=== PATIENT | male | born 1945 | race Caucasian/White ===

== ENCOUNTER 2019-11-09 15:11 | Outpatient (CLI) | payer MEDICARE, BC, SELFPAY ==
--- NOTE | 2019-11-09 | US_ITS ---
WS: [id number] RENAL ULTRASOUND URINARY BLADDER ULTRASOUND HISTORY: RENAL INSUFFICIENCY COMPARISON: None available. TECHNIQUE: 2-D and color Doppler imaging of the kidney submitted. Right kidney: 10.1 cm x 6.2 cm x 4.7 cm. Normal size kidney are normal echogenicity. There cortical cysts. The largest from the upper pole amy sures 2.6 x 2.4 cm. There are additional smaller cysts scattered throughout the kidney. No hydronephr osis or solid mass. Left kidney: 10.5 cm x 4.6 cm x 4.9 cm. Normal size kidney. No cortical thinning or hydronephrosis. No solid mass. Aorta: Normal. Urinary Bladder: Well-distended urinary bladder. No filling defects. No free fluid in the pelvis. US/US renal BI with bladder IMPRESSION: 1. No cortical atrophy or hydronephrosis. 2. Numerous RIGHT renal cysts with the largest measuring 2.6 x 2.4 cm.
== END 2019-11-09 15:12 | disposition home or self-care (01) ==
LOC: RAD 15:20
PROVIDERS: Visit Provider Family Medicine
DX: N28.9 Disorder of kidney and ureter, unspecified (principal); I10 Essential (primary) hypertension; Q61.02 Congenital multiple renal cysts
CPT/HCPCS: 76770; 76857

== ENCOUNTER 2021-08-30 19:43 | Emergency (ER) | payer MEDICARE, BC, SELFPAY ==
[2021-08-30 19:49] VITALS: BP 190/85; PULSE 89; RESP 18; TEMP 36.9; O2SAT 95; BMI 25.8
--- NOTE | 2021-08-30 20:01 | CTR_ITS ---
PROCEDURE INFORMATION: Exam: CT Cervical Spine Without Contrast Exam date and time: 08/30/2021 9:13 PM Age: 76 years old Clinical indication: Injury or trauma; Blunt trauma; Patient HX: C/O neck pain after fall; Additional info: Fall, arm numbness bilateral TECHNIQUE: Imaging protocol: Computed tomography images of the cervical spine without contrast. Radiation optimization: All CT scans at this facility use at least one of these dose optimization techniques: automated exposure control; mA and/or kV adjustment per patient size (includes targeted exams where dose is matched to clinical indication); or iterative reconstruction. COMPARISON: CT facial bones wo con* [id number] 08/30/2021 9:11 PM RADIATION DOSE METRICS: Total DLP (mGy-cm): 625.98 FINDINGS: Bones/joints: No cervical spine fracture is identified. There is decreased height of the C3-C4 disc with slight retrolisthesis and prominent anterior and posterior osteophytes. There are degenerative changes in facet joints bilaterally at multiple levels. Discs/Spinal canal/Neural foramina: Uncovertebral hypertrophy causes bilateral foraminal narrowing at C3-C4 and C5-C6, C6-C7 and C7-T1. There is decreased height of the C5-C6 C6-C7 and C7-T1 discs with small anterior and posterior osteophytes. Posterior spurring and disc osteophyte complex causes moderate to severe central canal stenosis at C3-C4 and C5-C6. Lungs: There is a calcified granuloma in the right pulmonary apex. Soft tissues: Unremarkable. CT/CT cervical spin wo con* [id number] IMPRESSION: Degenerative changes. No fracture is identified.
--- NOTE | 2021-08-30 20:01 | CTR_ITS ---
PROCEDURE INFORMATION: Exam: CT Head Without Contrast Exam date and time: 08/30/2021 9:08 PM Age: 76 years old Clinical indication: Injury or trauma; Blunt trauma (contusions or hematomas); Without loss of consciousness; Patient HX: Fall while walking denies loc TECHNIQUE: Imaging protocol: Computed tomography of the head without contrast. Radiation optimization: All CT scans at this facility use at least one of these dose optimization techniques: automated exposure control; mA and/or kV adjustment per patient size (includes targeted exams where dose is matched to clinical indication); or iterative reconstruction. COMPARISON: No relevant prior studies available. RADIATION DOSE METRICS: Total DLP (mGy-cm): 912.09 FINDINGS: Brain: There is mild cortical atrophy. Low-density changes in the white matter are consistent with nonspecific small vessel chronic ischemic change. There is no intracranial mass, hemorrhage or edema. Cerebral ventricles: No ventriculomegaly. Paranasal sinuses: Visualized sinuses are unremarkable. No fluid levels. Mastoid air cells: Visualized mastoid air cells are well aerated. Bones/joints: Unremarkable. No acute fracture. Soft tissues: Unremarkable. CT/CT head wo con* [id number] IMPRESSION: No acute intracranial finding
--- NOTE | 2021-08-30 20:01 | CTR_ITS ---
PROCEDURE INFORMATION: Exam: CT Maxillofacial Without Contrast Exam date and time: 08/30/2021 9:11 PM Age: 76 years old Clinical indication: Injury or trauma; Blunt trauma (contusions or hematomas); Cheek bone and orbit/periorbital; Left; Patient HX: L cheek bruising and swelling after fall TECHNIQUE: Imaging protocol: Computed tomography images of the face without contrast. Radiation optimization: All CT scans at this facility use at least one of these dose optimization techniques: automated exposure control; mA and/or kV adjustment per patient size (includes targeted exams where dose is matched to clinical indication); or iterative reconstruction. COMPARISON: CT head wo con* [id number] 08/30/2021 9:08 PM RADIATION DOSE METRICS: Total DLP (mGy-cm): 734.23 FINDINGS: Orbital cavities: Orbits are normal. Globes are unremarkable. Bones/joints: There is nasal septal deviation to the right. No facial fracture is identified. Paranasal sinuses: Paranasal sinuses are normally aerated and clear. Soft tissues: There is some swelling or contusion along the left side of the face and inferior to the left orbit. CT/CT facial bones wo con* [id number] IMPRESSION: Mild facial contusion. No fracture is identified.
--- NOTE | 2021-08-30 20:01 | W.ED.FALL ---
Documented by User: MERARI Wallis 08/30/21 22:06 HPI - Fall General: Chief Complaint: Fall Stated Complaint: Lt Check & Nose Injury\Elbow\Feels Like Needle Arm Time Seen by Provider: 08/30/21 20:00 History of Present Illness: Patient fell about 130 this afternoon. Patient reports tripping over a bar and landing on the his right elbow and striking the left side of his face against the ground. Patient denies any loss of consciousness. Patient reports that he feels okay except he started having some numbness and tingling in his distal hands. Patient is alert oriented responds appropriate to questions. Patient denies any use of blood thinners. Patient appears well. Patient appears in mild pain. MD complaint: fall Onset (ago): hour(s) Fall from: standing Fall witnessed: no Place fall occurred: home Loss of consciousness: None Prolonged down time: no Symptoms prior to fall: none Context: tripped/slipped Location of injury: head Location of injury - extremities: Right: forearm Associated symptoms-after fall: Denies chest pain Review of Systems General: Reports: 10 or more systems reviewed and unremarkable except in HPI and below Const: Denies: fever(s) Eyes: Denies: change in vision ENMT: Denies: throat pain Card: Denies: chest pain Resp: Denies: dyspnea GI: Denies: nausea Musc: Denies: back pain Skin/Breast: Reports: new lesions Neuro: Reports: numbness in extremities Physical Exam Const: COMMON NORMALS: alert HENMT: COMMON NORMALS: Normal external nose present HEAD & SCALP: abrasion (Left facial cheek) FACE & SINUS: abrasion (Left cheek) on the left maxilla NOSE: Normal external nose present MOUTH: Normal oral and palatal mucosa present THROAT: posterior oropharynx normal Eye: COMMON NORMALS: Equal, round and reactive pupils present and EOMs intact bilaterally PUPIL: Yes Equal, round and reactive pupils present Neck/C-Spine: CERVICAL SPINE: Yes cervical ROM normal, No step off deformity and Yes Paracervical muscle tenderness Resp: COMMON NORMALS: normal respiratory effort and clear to auscultation bilaterally AUSCULTATION: clear to auscultation bilaterally Cardio: COMMON NORMALS: regular rate and regular rhythm RATE: regular rate RHYTHM: regular rhythm Extremity: RIGHT UPPER EXTREMITY: Yes elbow joint (Abrasion about right elbow) Right elbow: Yes inspection, Yes palpation, Yes ROM and Yes neurovascular exam OTHER: Good muscle strength bilaterally to upper extremities. Neuro: SENSORIUM/ORIENTATION: Yes alert Psych: COMMON NORMALS: cooperative Skin: COMMON NORMALS: no rashes or lesions noted GENERAL SKIN EXAM: no rashes or lesions noted Course Vital Signs: Vital signs: Vital Signs Temperature 98.4 F 08/30/21 20:06 Pulse Rate 89 08/30/21 20:06 Respiratory Rate 16 08/30/21 20:06 Blood Pressure 190/85 08/30/21 20:06 Pulse Oximetry 97 08/30/21 20:06 MDM - Fall Medical Decision Making 76-year-old male patient comes in today with a fall about 1:00 this afternoon. Since then patient has had increasing numbness and tingling to his bilateral hands. On exam patient has abrasions to his right elbow, an abrasion and contusion to the left facial cheek. Patient has some tenderness to the paracervical muscles. Respirations are even lungs are clear to auscultation. No other injury can be seen. Differential diagnosis includes intracranial bleed, cervical fracture, degenerative disc disease. CT of the head and facial bones indicated no fracture or intracranial bleeding. CT of the cervical spine indicated severe degenerative disc disease with some foraminal stenosis. Reviewed exam with patient with recommendations for follow-up with orthopedic spine for further evaluation and treatment. Case management was requested for follow-up appointment. Lab Data Radiology Impressions Cervical Spine CT 08/30/21 20:01 IMPRESSION: Degenerative changes. No fracture is identified. Face CT 08/30/21 20:01 IMPRESSION: Mild facial contusion. No fracture is identified. Head CT 08/30/21 20:01 IMPRESSION: No acute intracranial finding Discharge Plan Discharge Patient Disposition: Home Clinical Impression: Degenerative cervical disc Fall Qualifiers: Encounter type: initial encounter Qualified Code(s): W19.XXXA - Unspecified fall, initial encounter Contusion of face Qualifiers: Encounter type: initial encounter Qualified Code(s): S00.83XA - Contusion of other part of head, initial encounter Condition: Stable Discharge Orders: Discharge ED (Routine); Ordered 08/30/21 Ordered By: Anam Cisse Discharge Diet: Usual diet Discharge Activity: Increase activity as tolerated Patient Instructions: Degenerative Disc Disease (ED) Activity Restrictions/Additional Instructions: Activity as tolerated. Use acetaminophen or ibuprofen for pain. Follow-up with primary care as needed. Return to ER for worsening symptoms or new concerns. Coding Level of Care Code ED Linoleum Mechanic for Chg Fwd Exam Comprehensive Documented by User: Suman Castañeda DO 08/31/21 01:00 HPI - Fall General: Chief Complaint: Fall Stated Complaint: Lt Check & Nose Injury\Elbow\Feels Like Needle Arm Time Seen by Provider: 08/30/21 20:00 Course Vital Signs: Vital signs: Vital Signs Temperature 98.4 F 08/30/21 20:06 Pulse Rate 89 08/30/21 20:06 Respiratory Rate 16 08/30/21 20:06 Blood Pressure 190/85 08/30/21 20:06 Pulse Oximetry 97 08/30/21 20:06 MDM - Fall Medical Decision Making 76-year-old male patient comes in today with a fall about 1:00 this afternoon. Since then patient has had increasing numbness and tingling to his bilateral hands. On exam patient has abrasions to his right elbow, an abrasion and contusion to the left facial cheek. Patient has some tenderness to the paracervical muscles. Respirations are even lungs are clear to auscultation. No other injury can be seen. Differential diagnosis includes intracranial bleed, cervical fracture, degenerative disc disease. CT of the head and facial bones indicated no fracture or intracranial bleeding. CT of the cervical spine indicated severe degenerative disc disease with some foraminal stenosis. Reviewed exam with patient with recommendations for follow-up with orthopedic spine for further evaluation and treatment. Case management was requested for follow-up appointment. This patient was originally seen by MERARI Quinonez.? I agree with his history, evaluation, and treatment. Lab Data Radiology Impressions Cervical Spine CT 08/30/21 20:01 IMPRESSION: Degenerative changes. No fracture is identified. Face CT 08/30/21 20:01 IMPRESSION: Mild facial contusion. No fracture is identified. Head CT 08/30/21 20:01 IMPRESSION: No acute intracranial finding Discharge Plan Discharge Patient Disposition: Home Clinical Impression: Degenerative cervical disc Fall Qualifiers: Encounter type: initial encounter Qualified Code(s): W19.XXXA - Unspecified fall, initial encounter Contusion of face Qualifiers: Encounter type: initial encounter Qualified Code(s): S00.83XA - Contusion of other part of head, initial encounter Condition: Stable Discharge Orders: Discharge ED (Routine); Ordered 08/30/21 Ordered By: Anam Cisse Discharge Diet: Usual diet Discharge Activity: Increase activity as tolerated Patient Instructions: Degenerative Disc Disease (ED) Activity Restrictions/Additional Instructions: Activity as tolerated. Use acetaminophen or ibuprofen for pain. Follow-up with primary care as needed. Return to ER for worsening symptoms or new concerns. Coding Level of Care Code ED Linoleum Mechanic for Pricilla Colbert Exam Comprehensive
[2021-08-30 20:06] VITALS: BP 190/85; PULSE 89; RESP 16; TEMP 36.9; O2SAT 97
--- NOTE | 2021-09-01 14:48 | DCPLANNER ---
Addendum entered by Aminta Espinoza 09/23/21 20:57: Patient had a follow up appointment scheduled for 09.11.21 with ortho - patient did not attend appointment. Addendum entered by Aminta Espinoza 09/02/21 08:37: Patient has a follow up appointment scheduled for August at 10:[address] Jaarmillo at ortho. Clinic will call patient with appointment information. Original Note: nursing program manager had message to schedule a follow up appointment for patient with ortho. nursing program manager sent patients information to the front staff at ortho, thru the [employer] messaging system. Patients information will be printed and reviewed. Clinic will call patient with appointment information.
== END 2021-08-30 22:06 | disposition home or self-care (01) ==
PROVIDERS: Emergency Provider Nurse Practitioner Family
DX: R20.0 Anesthesia of skin (principal); S50.311A Abrasion of right elbow, initial encounter; S00.83XA Contusion of other part of head, initial encounter; W18.09XA Striking against other object with subsequent fall, initial encounter; Y92.009 Unspecified place in unspecified non-institutional (private) residence as the place of occurrence of the external cause; M50.30 Other cervical disc degeneration, unspecified cervical region
CPT/HCPCS: 70450; 70486; 72125; 99282

== ENCOUNTER → 2021-09-04 08:37 | Outpatient (BNVA) | payer MEDICARE, BC, SELFPAY | PROVIDERS: PCP Family Medicine; Visit Provider Urology | DX: R31.0 Gross hematuria (principal) | CPT/HCPCS: 81003 ==

== ENCOUNTER 2021-09-08 11:42 | Observation (INO) | payer MEDICARE, BC, SELFPAY ==
[2021-09-05 14:17] VITALS: BMI 26.6
[2021-09-08] VITALS (21 sets, daily range): BP systolic 102–170; BP diastolic 53–88; PULSE 68–93; RESP 10–18; TEMP 36.3–36.9; O2SAT 90–100
--- NOTE | 2021-09-08 09:07 | XRR_ITS ---
PROCEDURE INFORMATION: Exam: XR Chest Exam date and time: 09/08/2021 9:20 AM Age: 76 years old Clinical indication: Pre-operative exam; Cardiovascular screening and respiratory screening exam; Patient HX: Pre op no complaints; Additional info: Newly diagnosed bladder cancer TECHNIQUE: Imaging protocol: XR of the chest. Views: 2 views. COMPARISON: CT cervical spin wo con* [id number] 08/30/2021 9:13 PM FINDINGS: Lungs: Hyperinflation. No focal infiltrates. Suspect a partially calcified 6 mm left mid lung granuloma. Pleural spaces: Unremarkable. No pleural effusion. No pneumothorax. Heart/Mediastinum: Unremarkable. No cardiomegaly. Bones/joints: Arthritis and mild curvature in the spine. XR/XR chest 2V* [id number] IMPRESSION: Partially calcified nodule possibly a left granuloma.
--- NOTE | 2021-09-08 09:07 | ECG_ITS ---
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 Measurements Intervals [place] Rate: 69 P: 89 WV: 181 QRS: 29 QRSD: 101 T: 56 QT: 377 QTc: 404 Interpretive Statements SINUS RHYTHM No previous ECG available for comparison Electronically Signed On 09-08-2021 23:07:09 CDT by Panfilo Corrales M.D. [id number]
--- NOTE | 2021-09-08 09:12 | P.HPUD_ITS ---
Surgery/Procedure H&P Update DATE OF PROCEDURE: September 08, 2021 DATE H&P PERFORMED: 09/04/21 H&P UPDATE INFORMATION: I have reviewed H&P completed within last 30 days, I have examined patient prior to procedure, No changes to prior documentation and H&P is in [facility] [place] date indicated PREOP DIAGNOSIS: Newly diagnosed bladder cancer PLANNED PROCEDURE: Operation Date: 09/08/21 10:20 Proposed Procedures p Cystoscopy [id number]/[id number](Not Applicable) - Jez Moseley MD s Transurethral Resection Bladder Tumor(Not Applicable) - Jez Moseley MD
[2021-09-08] MEDS: sodium chloride 0.9% 1,000 ML 30 ML IV (09:46)
--- NOTE | 2021-09-08 10:17 | P.OP_ITS ---
Operative Report Date of procedure: September 08, 2021 Pre-op diagnosis: Newly diagnosed bladder cancer Post-op diagnosis: Newly diagnosed bladder cancer Procedure done: Cystoscopy, transurethral section of bladder tumor large Specimens removed/disposition: Bladder tumor Pathology: Bladder tumor chips Surgeon: Pradip Anesthesia: General Urine output: Not measured Complications: None Brief History: Mr. Blandon is a delightful 76-year-old white male who I first evaluated on 09/04/2021 at the request of Dr. Johnson for episodic gross hematuria. He had a CT scan done at [facility] that showed enhancing filling defects within the bladder. 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 One of them was near or over the right ureteral orifice. He is admitted now for TURBT. Procedure: After routine preoperative evaluation examination and obtaining of informed consent he was taken to the operating suite on 09/08/2021 where general anesthesia was administered without difficulty after appropriate timeout was performed, SCDs confirmed to be functioning, preoperative antibiotics admini stered, beta-ray protocol confirmed. Prepped and draped in the usual sterile fashion in dorsolithotomy position paying careful attention to avoiding pressure points. 21 [place] cystoscope with 30 degree lens was introduced into the urethra meatus and advanced into the bladd without difficulty. 30 and 70 degree lenses were used to examine the bladder with confirmation of the findings in the cl inic. Findings: The urethra was then calibrated with [place] sounds and easily accommodated 30 [place]ian. The gyrus bipolar system was utilized for resection. The 25 [place] continuous- flow resectoscope sheath with visual obturator in place was advanced into the bladder without difficulty. The working element with super loop was utilized to resect the tumor down to the base. Deep sections were then taken of the base of each area. Muscle was seen at the base All chips were evacuated from the bladder. Fulguration was utilized as needed to obtain complete hemostasis. Bladder was then drained with a 20 [place] three-way Gusman catheter and light normal saline CBI was initiated He tolerated the procedure well without complications and was awakened in the operating room and returned to the recovery room in stable condition Plans: 1. Mitomycin instillation either this afternoon or tomorrow morning 2. Anticipate leaving the catheter at discharge to allow further healing
--- NOTE | 2021-09-08 10:24 | ANES.PREANE2 ---
Pre-Anesthetic Assessment Height/Weight: Height 1.73 m Weight 79.379 kg Temp Pulse Resp BP Pulse Ox 97.6 F 74 18 167/79 95 09/08/21 09:30 09/08/21 09:30 09/08/21 09:30 09/08/21 09:30 09/08/21 09:30 Preop Diagnosis: Newly diagnosed bladder cancer Operation Date: 09/08/21 10:20 Proposed Procedures p Cystoscopy [id number]/[id number](Not Applicable) - Jez Moseley MD s Transurethral Resection Bladder Tumor(Not Applicable) - Jez Moseley MD Familial anesthetic complications: None Was Beta Cy taken within 24 hours: Yes Was Clonidine taken within 24 hours: N/A Last intake: Intake Last Liquid Date 09/07/21 Last Liquid Time 23:00 Last Solid Date 09/07/21 Last Solid Time 20:00 Social Tobacco and No alcohol Exam alert, oriented x 3 and regular rate & rhythm Airway Submandibular: within normal limits Cervical ROM: within normal limits Mallampati: Class II Dentition: caps Pulmonary Chronic Obstructive Pulmonary Disease CV/HEM Hypertension Metabolic Hyperlipidemia Anesthetic Plan ASA status: 3 Anesthesia: General Medications/Allergies Home Medications Medication Instructions Recorded Confirmed Last Taken Type cholecalciferol (vitamin D3) 25 25 mcg PO DAILY 09/04/21 09/05/21 09/07/21 History mcg (1,000 unit) capsule irbesartan 300 1 tab PO DAILY 09/04/21 09/05/21 09/07/21 History mg-hydrochlorothiazide 12.5 mg tablet (Avalide) magnesium 250 mg tablet 250 mg PO DAILY 09/04/21 09/05/21 09/07/21 History metoprolol tartrate 25 mg tablet 25 mg PO BID 09/04/21 09/05/21 09/08/21 07:00 History cnpoccxw-zlixjczc-tzayq acid 400 tab PO DAILY tab 09/04/21 09/04/21 09/07/21 History mcg-vit K 20 mcg-lycop 300 mcg tablet (One-A-Day Men's Multivitamin) pravastatin 20 mg tablet 20 mg PO DAILY 09/04/21 09/05/21 09/07/21 History Allergies Allergy/AdvReac Type Severity Reaction Status Date / Time lidocaine Allergy low heart Verified 09/08/21 09:43 rate Current Medications Generic Name Dose Route Start Last Admin Trade Name Frecarter PRN Reason Stop Dose Admin Sodium Chloride 1,000 mls @ 30 mls/hr 09/08/21 09:15 09/08/21 09:46 Sodium Chloride 0.9% IV 09/09/21 09:14 30 mls/hr .Q24H HIGINIO Administration PFSH Anesthesia Medical History (Updated 09/07/21 @ 00:00 by ) Gross hematuria Lesion of bladder Family History (Updated 09/04/21 @ 08:49 by Laureen Chadwick LPN) Father , AT AGE 67 Accidentally struck by tree Mother , AT AGE 84 Sepsis Social History (Updated 09/04/21 @ 08:49 by Laureen Chadwick LPN) Smoking and tobacco status: current every day smoker Alcohol intake: never Marital status: Current occupational status: retired History of recent travel: No Data Anesthesia Cardiac Studies: No Data to Display
[2021-09-08] MEDS: levofloxacin-dextrose 5 % 500 MG/100 ML PREMIX 100 MG IV (10:26)
[2021-09-08 10:34] LABS: Basophils % 0.4 %; Eosinophils # 0.2 10^3/uL (0.0-0.8); Eosinophils % 2.2 %; Hematocrit 39.8 % (42.0-52.0); Hemoglobin 13.3 g/dL (11.7-16.6); Lymphocytes # 2.9 10^3/uL (0.8-4.8); Lymphocytes % 27.3 %; Mean Corpuscular HGB Conc 33.4 g/dL (30.0-36.0); Mean Corpuscular Volume 89.8 fl (80-94); Mean Platelet Volume 10.4 fL (7.4-10.4); Monocytes # 0.8 10^3/uL (0.2-0.9); Monocytes % 7.9 %; Neutrophils # 6.47 10^3/uL (1.8-7.7); Neutrophils % 61.9 %; Nucleated Red Blood Cells % 0 %; Platelet Count 373 10^3/cmm (130-400); Red Blood Count 4.43 10^6/uL (4.1-5.3); Red Cell Distribution Width 12.2 % (12.1-15.1); White Blood Count 10.5 10^3/uL (4.0-10.0)
[2021-09-08] MEDS: lidocaine 2% Urojet 20 mL TOPICAL (10:48)
[2021-09-08 11:04] LABS: Alanine Aminotransferase 15 U/L (0-41); Albumin Level 4.1 g/dL (3.5-5.2); Alkaline Phosphatase 106 IU/L (40-130); Anion Gap 15.5 (5-19); Aspartate Amino Transferase 14 U/L (0-40); Blood Urea Nitrogen 30 mg/dL (8-23); Calcium 9.6 mg/dL (8.5-10.5); Carbon Dioxide 23 mmol/L (22-29); Chloride 100 mmol/L (98-107); Globulin 3.8 g/dL (1.3-4.6); Glucose 150 mg/dL (65-115); Osmolality Calculated 287 mOsm/kg (285-295); Potassium 4.5 mmol/L (3.5-5.1); Sodium 134 mmol/L (136-145); Total Bilirubin 0.3 mg/dL (0.15-1.2); Total Protein 7.9 g/dL (6.6-8.7)
[2021-09-08] MEDS: D5-NS 0.45% + KCL 20 mEq 20 MEQ/1,000 ML BAG 50 MEQ IV (12:46)
[2021-09-08] MEDS: hydroCHLOROthiazide 25 mg Tablet 12.5 MG PO (13:07)
[2021-09-08] MEDS: losartan 50 mg Tablet 100 MG PO (13:07)
--- NOTE | 2021-09-08 14:10 | ANE.PACU2 ---
Inpatient post-anesthesia follow up: Airway intact: Yes Vital signs: Temperature 97.8 F Pulse Rate 72 Respiratory Rate 18 Blood Pressure 170/82 Pulse Oximetry 94 Oxygen Delivery Me thod Room Air Oxygen Flow Rate 6 Fraction of Inspir ed Oxygen Hydration adequate: Yes Nausea and vomiting: No Pain level: 2 Mental status: Baseline
[2021-09-08] MEDS: docusate sodium 100 mg Capsule PO (17:44)
--- NOTE | 2021-09-08 17:44 | P.MISC_ITS ---
Miscellaneous Note Purpose of Documentation: Mitomycin documentation Note: 40 mg of mitomycin and 40 cc normal saline instilled into the bladder atraumatically. Slow infusion. Outflow plugged. Reviewed with nursing staff to remove the plugs at 1 hour or sooner for i ncreasing discomfort associated with overfilling. Placed back to dependent drainage.
--- NOTE | 2021-09-08 18:38 | PC.NURSE ---
Patient AAOx4, VSS, repositioned self frequently. Gusman in place and patent with medication drained per physicians specified time. No complications with drainage or holding in til drainage time. No new events, at bedside, no c/o pain, room clean and clutter free with call light in reach.
[2021-09-08] MEDS: metoprolol tartrate 25 mg Tablet PO (20:01)
[2021-09-09] MEDS: zolpidem 5 mg Tablet PO (01:33)
[2021-09-09 04:00] VITALS: BP 113/64; PULSE 69; RESP 16; TEMP 36.6; O2SAT 91
--- NOTE | 2021-09-09 05:40 | PC.NURSE ---
PATIENT RESTED IN BED THROUGHOUT THE NIGHT. ALERT AND ORIENTED X4, VSS. PATIENT AMBULATED IN ROOM LAST NIGHT WITH NO DIFFICULTIES AND NO COMPLAINTS OF DIZZINESS OR LIGHT HEADINESS. PATIENT HAD NO COMPLAINTS OF PAIN OR DISCOMFORT VOICED THIS SHIFT. FISHER IN PLACE, DRAINING WITH NO DIFFICULTIES. IV PATENT AND INTACT. PATINET RESTING IN BED AT THIS TIME, ENCOURAGED TO SIT IN CHAIR WHILE PATIENT IS AWAKE. CALL LIGHT IVETT BARFIELD, NO DISTRESS NOTED AT THIS TIME.
--- NOTE | 2021-09-09 07:18 | PM.DCS ---
Discharge Providers Date of Admission: 09/08/21 11:42 Date of Discharge: September 09, 2021 Attending Provider at Admission: Jez Moseley MD Attending Provider at Discharge: Jez Moseley MD Primary Care Provider: Magnus Johnson DO Diagnoses at Discharge Discharge Diagnosis (1) Bladder cancer: Details from hospital stay: TURBT performed without difficulty. 2 large tumors noted. Deep resection performed. Discharged with Gusman catheter in place Status: Acute (2) Hypertension: Status: Acute Other Information Additional DC diagnoses/information: Discharge with Gusman catheter in place. Trained in catheter care and bag management. Reason for Visit Reason for Visit: lesion of bladder Brief History: Mr. Blandon is a delightful 76-year-old white male recently evaluated for gross hematuria and found to have 2 areas suspicious for TCC of the bladder on outpatient cystoscopy. CT scan revealed nothing else outside of the bladder but did confirm these lesions. Admitted for TURBT. No contraindications to surgery. Hospital Course Hospital Course He was admitted on 09/09/2019 to the day of surgery which went well. Had 2 distinct areas of tumor one on the left lateral wall and the other on the right posterior lateral wall just cephalad to the right ureteral orifice/trigone. Both orifices were clear of tumor. 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 Postoperatively he did well. He received MITOMYCIN 40 mg bladder instillation, holding it for 1 hour, on the afternoon of the surgery. His urine remained clear and catheter functioned well throughout his hospital stay. Due to the depth of resection it was decided to send him home with a Gusman catheter in place for voiding trial later in the week. Discharged on postoperative day #1 in stable condition. Physical Exam Narrative: Alert oriented no acute distress Neck with good range of motion Neurologic no focal defects Respiratory no labored respiration or audible wheezing Urine is clear. Good range of motion of the extremities. Baseline physical exam. Urinary Catheter Management: 3-way Urethral CBI: Cath Placed During This Visit: yes Reason for Continuing Indwelling Catheter: Other Urinary Catheter Date of Insertion: 09/08/21 Urinary Catheter Time of Insertion: 11:15 Discharge Data Studies Completed and Pending Completed Studies During Hospitalization Category Date Time Status XR chest 2V* [id number] Routine Exams 09/08/21 09:07 Completed Radiology Impressions Chest X-Ray 09/08/21 09:07 IMPRESSION: Partially calcified nodule possibly a left granuloma. Laboratory Results WBC 10.5 10^3/uL (4.0-10.0) H 09/08/21 09:47 RBC 4.43 10^6/uL (4.1-5.3) 09/08/21 09:47 Hgb 13.3 g/dL (11.7-16.6) 09/08/21 09:47 Hct 39.8 % (42.0-52.0) L 09/08/21 09:47 MCV 89.8 fl (80-94) 09/08/21 09:47 MCH 30.0 pg (28.0-34.0) 09/08/21 09:47 MCHC 33.4 g/dL (30.0-36.0) 09/08/21 09:47 RDW 12.2 % (12.1-15.1) 09/08/21 09:47 Plt Count 373 10^3/cmm (130-400) 09/08/21 09:47 MPV 10.4 fL (7.4-10.4) 09/08/21 09:47 Neut % (Auto) 61.9 % 09/08/21 09:47 Lymph % (Auto) 27.3 % 09/08/21 09:47 [place] % (Auto) 7.9 % 09/08/21 09:47 Eos % (Auto) 2.2 % 09/08/21 09:47 Baso % (Auto) 0.4 % 09/08/21 09:47 Neut # (Auto) 6.47 10^3/uL (1.8-7.7) 09/08/21 09:47 Lymph # (Auto) 2.9 10^3/uL (0.8-4.8) 09/08/21 09:47 [place] # (Auto) 0.8 10^3/uL (0.2-0.9) 09/08/21 09:47 Eos # (Auto) 0.2 10^3/uL (0.0-0.8) 09/08/21 09:47 Baso # (Auto) 0.0 10^3/uL (0.0-0.1) 09/08/21 09:47 Nucleated RBC % (auto) 0 % 09/08/21 09:47 Nucleated RBCs # 0.0 /100WBC 09/08/21 09:47 Sodium 134 mmol/L (136-145) L 09/08/21 09:47 Potassium 4.5 mmol/L (3.5-5.1) 09/08/21 09:47 Chloride 100 mmol/L (98-107) 09/08/21 09:47 Carbon Dioxide 23 mmol/L (22-29) 09/08/21 09:47 Anion Gap 15.5 (5-19) 09/08/21 09:47 BUN 30 mg/dL (8-23) H 09/08/21 09:47 Creatinine 1.2 mg/dL (0.7-1.2) 09/08/21 09:47 GFR Calculation Not Reportable 09/08/21 09:47 Glucose 150 mg/dL (65-115) H 09/08/21 09:47 Calculated Osmolality 287 mOsm/kg (285-295) 09/08/21 09:47 Calcium 9.6 mg/dL (8.5-10.5) 09/08/21 09:47 Total Bilirubin 0.3 mg/dL (0.15-1.2) 09/08/21 09:47 AST 14 U/L (0-40) 09/08/21 09:47 ALT 15 U/L (0-41) 09/08/21 09:47 Alkaline Phosphatase 106 IU/L (40-130) 09/08/21 09:47 Total Protein 7.9 g/dL (6.6-8.7) 09/08/21 09:47 Albumin 4.1 g/dL (3.5-5.2) 09/08/21 09:47 Globulin 3.8 g/dL (1.3-4.6) 09/08/21 09:47 Procedures Performed Cystoscopy, transurethral section of bladder tumor large Vitals Last Vital Signs Temp 97.9 F 09/09/21 04:00 Pulse 69 09/09/21 04:00 Resp 16 09/09/21 04:00 BP 113/64 09/09/21 04:00 Pulse Ox 91 09/09/21 04:00 Discharge Plan Discharge Patient Disposition: Home Condition: Stable Prescriptions: Continued irbesartan-hydrochlorothiazide [Avalide] 300-12.5 mg tablet 1 tab PO DAILY 0RF magnesium 250 mg tablet 250 mg PO DAILY 0RF pravastatin 20 mg tablet 20 mg PO DAILY 0RF cholecalciferol (vitamin D3) 25 mcg (1,000 unit) capsule 25 mcg PO DAILY 0RF metoprolol tartrate 25 mg tablet 25 mg PO BID 0RF One-A-Day Men's Multivitamin 400-20-300 mcg tablet PO DAILY 0RF Discharge Orders: Discharge Order (Routine); Ordered 09/09/21 Ordered By: Jez Moseley Referrals: Jez Moseley MD [Physician] - 09/12/21 (Voiding trial, [facility] instruction) Discharge Diet: Usual diet Discharge Activity: Increase activity as tolerated Patient Instructions: Opioid Safety Activity Restrictions/Additional Instructions: 1. You can choose between the leg bag and the night bag based on your preference. 2. Please call if you have persistent bleeding in your urine. It is not uncommon to see some blood in the urine. If this is the case please drink more fluids to keep your urine dilute. If the catheter is not draining it will be important to let us know as soon as possible. 3. We will plan on a voiding trial in my office on Wednesday. Hopefully the pathology report will be back that time. We will also train you on how to pass a catheter if you have trouble voiding in the immediate postoperative period 4. The office number is [phone]. The hospital can reach me after hours if you have any questions. Discharge Attestations Time Spent in Discharge Care*: less than 30 min Quality Metrics Clinical Quality Measures [ No reported AMI, CVA or VTE this stay] Coding Level of Care Code Acute Chg FW DC note Diagnoses Bladder cancer C67.9 Hypertension I10
[2021-09-09 07:44] VITALS: BP 123/71; PULSE 68; RESP 16; TEMP 36.7; O2SAT 91
[2021-09-09 08:34] VITALS: BP 123/71
[2021-09-09] MEDS: cholecalciferol (vitamin D3) 1,000 unit Tablet 1000 UNIT PO (08:34)
[2021-09-09] MEDS: losartan 50 mg Tablet 100 MG PO (08:34)
[2021-09-09] MEDS: docusate sodium 100 mg Capsule PO (08:34)
[2021-09-09] MEDS: hydroCHLOROthiazide 25 mg Tablet 12.5 MG PO (08:34)
[2021-09-09] MEDS: atorvastatin 40 mg Tablet 20 MG PO (08:34)
[2021-09-09] MEDS: metoprolol tartrate 25 mg Tablet PO (08:37)
[2021-09-09 09:17] VITALS: BP 123/71; PULSE 72; RESP 18; TEMP 37; O2SAT 97
== END 2021-09-09 09:27 | disposition home or self-care (01) ==
LOC: MEDSURG 11:45
PROVIDERS: Admitting Provider Urology; PCP Family Medicine; Visit Provider Urology
PROC: 0TJB8ZZ Inspection of Bladder, Via Natural or Artificial Opening Endoscopic (ICD-10-PCS; CPT 52000; principal; 2021-09-08 10:10)
PROC: 0TBB8ZZ Excision of Bladder, Via Natural or Artificial Opening Endoscopic (ICD-10-PCS; CPT 52240; 2021-09-08 10:10)
DX: C67.9 Malignant neoplasm of bladder, unspecified (principal); I10 Essential (primary) hypertension; J44.9 Chronic obstructive pulmonary disease, unspecified; E78.5 Hyperlipidemia, unspecified; F17.210 Nicotine dependence, cigarettes, uncomplicated
CPT/HCPCS: 52240; 71046; 80053; 85025; 88309; 93005; G0378; J1100; J1956; J2405; J2704; J3010; J3490; J7030; J9280

== ENCOUNTER 2021-09-17 12:00 | Outpatient (CLI) | payer MEDICARE, BC, SELFPAY ==
--- NOTE | 2021-09-17 18:02 | ONC CON_ITS ---
Dr. Banks New Patient Note Patient: Gilson Blandon Unit #: [id number]: 1945 Dicatated By: Mukul Banks M.D.Date of Visit: Sep 17, 2021 Onc MED New Patient/Consult Referring Physician: Dr. Jez Moseley M.D. History of Present Illness: Mr. Gilson Blandon, is a 76-year-old gentleman with a history of off-and-on hematuria,, underwent CT scan of abdomen pelvis on August 28, 2021 which shows multiple filling defect within the urinary bladder may represent urinary bladder neoplasm. Multiple bilateral renal cyst. 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 Patient has longstanding history of smoking but quit in first week of August 2021,, Denies alcohol use, Denies any fever or chills, denies any nausea or vomiting or any diarrhea or constipation, denies any new bony pains denies any Hemoptysis or hematemesis. Past Medical History: Mr. Blandon's medical history consists of gross hematuria. Past Surgical History: Mr. Blandon's surgical/procedural history consists of Covid vaccine #3 - Pfizer in 2020, Covid vaccine #2 - Pfizer in 2020, and Covid vaccine #1 - Pfizer in 2020. Medications: Cholecalciferol 1 Capsule (of 25 mcg ) Oral daily, Irbesartan-hydroCHLOROthiazide 1 Tablet (of 300-12.5 mg) Oral daily, Magnesium 1 Tablet (of 250 mg) Oral daily, Metoprolol Tartrate 1 Tablet (of 25 mg) Oral b.i.d., One-A-Day Mens 1 Tablet Oral daily, Pravastatin Sodium 1 Tablet (of 20 mg) Oral at bedtime Allergies: lidocaine Social History: Mr. Blandon is . Mr. Blandon no longer smokes but had smoked 2.0 packs/day. He has no history of drinking. He has indicated exposure to the following products: cigarettes. Family History: Mr. Blandon's mother at age 84: sepsis. Mr. Blandon's father at age 67: struck by tree. Review Of Symptoms: Review of Systems is not available for this patient. Vital Signs: Performed on Sep 17, 2021 13:39: 0, 0, 26.85, 1.94 sq.m, 68 in, 97 %, 73 /min, 16 /min, 167/80 mm(hg) (HIGH), 97.3 F (LOW), and 176.6 lbs (HIGH). Performance Status: 0 - Fully active, able to carry on all predisease activities without restrictions. (ECOG) Physical Examination: ENMT - No mouth sores, no thrush, no jaundice, Respiratory - Lungs are clear to auscultation, Cardiovascular - Regular rate and rhythm of heart, Abdomen - Soft, bowel sounds present, Extremities - No visible edema. Lab/Imaging: Most recent lab results are not available for this patient. 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 Multiple bilateral renal cysts, no evidence of nephrolithiasis or obstructive uropathy. C T2b, NX MX, stage II Plan: Discussed with patient regarding his disease status and treatment options, as per NCCN guidelines, for muscle invasive bladder cell carcinoma, neoadjuvant chemotherapy with dose dense MVAC, 3-4 cycles followed by cystectomy or bladder sparing treatment with combined chemoradiation as both category 1 recommendations, pros and cons, including toxicity related to dose dense chemotherapy with MVAC, followed by cystectomy were discussed and also issues related to combined chemoradiation option. Patient is exploring all these treatment options, as per patient; he was exploring information mentioned on the Internet and now considering second opinion from [facility] or [facility] in [place]. Patient will discuss with other family members and make a decision regarding going to [facility] or [facility]. As per Dr. Moseley's note, he was referred to [facility] in [place], in fact, patient did receive call from [facility] this morning, but patient is considering either going to [facility] or [facility]. Once he make up his mind, he will call us and we will refer him to center of his choice. And he will return to clinic 1 week after his visit to center of his choice,, unless he decides to pursue on his treatment there. Signed By: Mukul Banks M.D. <<Signature on File>>
== END 2021-09-17 12:01 | disposition home or self-care (01) ==
LOC: ONCMED 12:03
PROVIDERS: PCP Family Medicine; Visit Provider Internal Medicine Hematology & Oncology
DX: C67.8 Malignant neoplasm of overlapping sites of bladder (principal); N28.1 Cyst of kidney, acquired
CPT/HCPCS: 99205

== ENCOUNTER → 2021-10-21 14:17 | Outpatient (BNVA) | payer MEDICARE, BC, SELFPAY | PROVIDERS: PCP Family Medicine; Visit Provider Family Medicine | DX: C67.9 Malignant neoplasm of bladder, unspecified (principal); Z79.899 Other long term (current) drug therapy | CPT/HCPCS: 81000; 87086 ==

== ENCOUNTER → 2022-10-22 15:25 | Outpatient (BNVA) | payer MEDICARE, BC, SELFPAY | PROVIDERS: PCP Family Medicine; Visit Provider Family Medicine | DX: C67.9 Malignant neoplasm of bladder, unspecified (principal); R31.0 Gross hematuria | CPT/HCPCS: 81000; 87086 ==

== ENCOUNTER → 2023-01-27 11:52 | Outpatient (BNVA) | payer MEDICARE, BC, SELFPAY | PROVIDERS: PCP Family Medicine; Visit Provider Family Medicine | DX: R31.0 Gross hematuria (principal) | CPT/HCPCS: 87086 ==

== ENCOUNTER → 2023-04-27 11:02 | Outpatient (BNVA) | payer MEDICARE, BC, SELFPAY | PROVIDERS: PCP Family Medicine; Visit Provider Family Medicine | DX: R73.9 Hyperglycemia, unspecified (principal); I10 Essential (primary) hypertension; E78.5 Hyperlipidemia, unspecified; C67.9 Malignant neoplasm of bladder, unspecified; J44.9 Chronic obstructive pulmonary disease, unspecified | CPT/HCPCS: 80053; 83036 ==

== ENCOUNTER → 2023-05-03 12:57 | Outpatient (BNVA) | payer MEDICARE, BC, SELFPAY | PROVIDERS: PCP Family Medicine; Visit Provider Clinical Nurse Specialist Adult Health | DX: M25.562 Pain in left knee (principal); Z79.899 Other long term (current) drug therapy | CPT/HCPCS: 84550; 85025; 85651; 86140 ==

== ENCOUNTER → 2023-06-07 12:55 | Outpatient (BNVA) | payer MEDICARE, BC, SELFPAY | PROVIDERS: PCP Family Medicine; Visit Provider Family Medicine | DX: M19.90 Unspecified osteoarthritis, unspecified site (principal) | CPT/HCPCS: 84550 ==

== ENCOUNTER 2023-07-20 12:27 | Outpatient (CLI) | payer MEDICARE, BC, SELFPAY ==
--- NOTE | 2023-07-20 12:31 | XRR_ITS ---
PROCEDURE INFORMATION: Exam: XR Chest Exam date and time: 07/20/2023 1:14 PM Age: 78 years old Clinical indication: Condition or disease; Lung condition and disease; Copd; Complications not specified; Cough; Patient HX: HX of bladder cancer TECHNIQUE: Imaging protocol: Radiologic exam of the chest. Views: 2 views. COMPARISON: CR XR chest 2V* [id number] 09/08/2021 9:20 AM FINDINGS: Lungs: Hyperinflation in this patient with COPD. Small benign calcified granuloma mid left lung and lower left lung are unchanged with 2021 exam. No focal infiltrate or consolidation. Pleural spaces: No pleural effusion or pneumothorax. Heart/Mediastinum: Cardiac size is within normal limits. Vasculature: Arteriosclerosis of the thoracic aorta. Bones/joints: Spondylotic change thoracic spine with slight thoracic dextroscoliosis. Other findings: No significant change with prior exam. XR/XR chest 2V* [id number] IMPRESSION: Hyperinflation/COPD without acute findings or significant change with prior exam.
== END 2023-07-20 12:28 | disposition home or self-care (01) ==
LOC: RAD 12:28
PROVIDERS: PCP Family Medicine; Visit Provider Family Medicine
DX: J44.9 Chronic obstructive pulmonary disease, unspecified (principal); M25.562 Pain in left knee; Z85.51 Personal history of malignant neoplasm of bladder
CPT/HCPCS: 71046; 84550

== ENCOUNTER → 2023-09-01 11:13 | Outpatient (BNVA) | payer MEDICARE, BC, SELFPAY | PROVIDERS: PCP Family Medicine; Visit Provider Family Medicine | DX: C67.9 Malignant neoplasm of bladder, unspecified (principal); J44.9 Chronic obstructive pulmonary disease, unspecified; N32.9 Bladder disorder, unspecified; R31.0 Gross hematuria | CPT/HCPCS: 84550 ==

== ENCOUNTER 2023-09-05 19:26 | Inpatient (IN) | payer MEDICARE, BC, SELFPAY ==
[2023-09-05] VITALS (9 sets, daily range): BP systolic 134–152; BP diastolic 70–100; PULSE 81–110; RESP 24–32; TEMP 36.6; O2SAT 90–100; BMI 28.1
--- NOTE | 2023-09-05 19:43 | XRR_ITS ---
PROCEDURE INFORMATION: Exam: XR Chest Exam date and time: 09/05/2023 7:56 PM Age: 78 years old Clinical indication: Other: Syncope TECHNIQUE: Imaging protocol: Radiologic exam of the chest. Views: 1 view. COMPARISON: CR XR chest 2V* [id number] 07/20/2023 1:14 PM FINDINGS: Lungs: Stable mild interstitial prominence, likely chronic. No consolidation. Pleural spaces: No pleural effusion or pneumothorax. Heart/Mediastinum: The cardiomediastinal silhouette is within normal limits. Bones/joints: No acute osseous abnormalities are seen. XR/XR chest 1V portable [id number] IMPRESSION: No acute cardiopulmonary disease.
--- NOTE | 2023-09-05 19:43 | CTR_ITS ---
PROCEDURE INFORMATION: Exam: CT Head Without Contrast Exam date and time: 09/05/2023 8:01 PM Age: 78 years old Clinical indication: Altered mental status/memory loss; Confusion or disorientation; Additional info: Syncope TECHNIQUE: Imaging protocol: Computed tomography of the head without contrast. Radiation optimization: All CT scans at this facility use at least one of these dose optimization techniques: automated exposure control; mA and/or kV adjustment per patient size (includes targeted exams where dose is matched to clinical indication); or iterative reconstruction. COMPARISON: CT head wo con* [id number] 08/30/2021 9:08 PM RADIATION DOSE METRICS: Total DLP (mGy-cm): 1081.28 FINDINGS: Brain: There is cjrz-wi-dihkqbky cerebral atrophy. There are spte-gd-wlkdtjuw deep white matter microangiopathic ischemic changes. No acute hemorrhage is identified. No mass or mass effect is identified. Cerebral ventricles: Moderately dilated ventricles secondary to atrophy. Paranasal sinuses: Mild left posterior ethmoidal sinus disease. The visualized paranasal sinuses are otherwise clear. Mastoid air cells: Visualized mastoid air cells are well aerated. Bones/joints: Unremarkable. No acute fracture. Soft tissues: Unremarkable. CT/CT head wo con* [id number] IMPRESSION: 1. No acute intracranial pathology. 2. Senescent changes.
--- NOTE | 2023-09-05 19:45 | ECG_ITS ---
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 Measurements Intervals Media Rate: 102 P: 36 MO: 179 QRS: 2 QRSD: 97 T: 75 QT: 330 QTc: 430 Interpretive Statements SINUS TACHYCARDIA Compared to ECG 09/08/2021 09:51:07 Sinus rhythm no longer present Electronically Signed On 09-06-2023 13:16:13 CDT by Dudley Hernandez M.D. [email or web address]
[2023-09-05 19:55] LABS: Basophils # 0.1 10^3/uL (0.0-0.1); Basophils % 0.6 %; Eosinophils # 0.2 10^3/uL (0.0-0.8); Eosinophils % 1.8 %; Hematocrit 42.6 % (37-53); Lymphocytes # 6.6 10^3/uL (0.8-4.8); Lymphocytes % 52.3 %; Mean Corpuscular HGB Conc 34.3 g/dL (30-55); Mean Corpuscular Hemoglobin 31.9 pg (27-33); Mean Platelet Volume 10.1 fL (7.4-10.4); Monocytes # 0.9 10^3/uL (0.2-0.9); Monocytes % 7.1 %; Neutrophils % 37.9 %; Nucleated Red Blood Cells % 0 %; Platelet Count 344 10^3/cmm (157-399); Red Blood Count 4.58 10^6/uL (3.85-5.65); Red Cell Distribution Width 14.2 % (12.1-15.1); White Blood Count 12.65 10^3/uL (3.29-11.43)
--- NOTE | 2023-09-05 20:06 | ED_ITS ---
HPI - Seizure 2 General: Chief Complaint: Seizure Stated Complaint: SYNCOPE Time Seen by Provider: 09/05/23 19:35 History of Present Illness: HPI Narrative: 78-year-old male who just prior to arriv al was sitting in a breakfast note. His states that suddenly he looked to the left and up, and pointed his right hand out as if he was pointing to an object. The hand was shaking to some degree. He then went unresponsive and slumped over. He began to get very stiff, gripping the sides of his chair very tightly. His moved in with the floor, at which point he was grabbing on the legs of the chair very tightly as well, and his body was stiff, not necessarily shaking. She believes that he quit breathing momentarily. 911 was called. He became arousable after their arrival. Associated symptoms: Reports confusion; Deny chest pain, chills or fever(s) Review of Systems 2 Const: Denies: fever(s), chills or body aches Eyes: Denies: change in vision Card: Denies: chest pain or palpitations Resp: Denies: dyspnea, productive cough, non-productive cough or wheezing GI: Denies: abdominal pain, nausea, vomiting, diarrhea or hematochezia Skin/Breast: Denies: rash Neuro: Reports: confusion and seizure-like activity; Denies: weakness in extremities or dizziness PFSH ED 2 PFSH: Medical History Hx of bladder cancer Is on BCG History of tumor FATTY RUMOR REMOVED FROM LEFT LEG ABOVE KNEE Hyperlipidemia Hypertension Lesion of bladder Gross hematuria Surgical History History of cystoscopy Family History Father , AT AGE 67 Accidentally struck by tree Mother , AT AGE 84 Sepsis Social History Smoking and tobacco/nicotine status: current every day tobacco/nicotine user Alcohol intake: never Substance/Drug Use: never Marital status: Current occupational status: retired Physical Exam 2 Const: COMMON NORMALS: no acute distress GENERAL APPEARANCE: cooperative; not ill appearing and not frail appearing HENMT: COMMON NORMALS: normocephalic, atraumatic and Normal external nose present HEAD & SCALP: normocephalic and atraumatic FACE & SINUS: normal facial exam and face symmetric NOSE: Normal external nose present MOUTH: t ongue abnormal (abrasion of tip) Eye: COMMON NORMALS: Equal, round and reactive pupils present and EOMs intact bilaterally PUPIL: Yes Equal, round and reactive pupils present Neck/C-Spine: GENERAL: Yes trachea midline Chest: CHEST: Yes Symmetrical chest wall rise Resp: COMMON NORMALS: normal respiratory effort, No retractions, No use of accessory muscles and clear to auscultation bilaterally AUSCULTATION: clear to auscultation bilaterally Cardio: COMMON NORMALS: regular rhythm RATE: tachycardic RHYTHM: regular rhythm GI: COMMON NORMALS: Normal to inspection, nondistended, normoactive bowel sounds present Extremity: COMMON NORMALS: no pedal edema Neuro: CHANTEL COMA SCALE: document GCS findings [place] coma scale eye opening: Spontaneous [place] coma scale verbal response: Orientated [place] coma scale motor response: Obey commands Chantel coma scale total score: 15 S ENSORY EXAM: Yes extremities (intact) Psych: COMMON NORMALS: speech normal SPEECH: Yes normal speech Skin: COMMON NORMALS: no rashes or lesions noted GENERAL SKIN EXAM: no rashes or lesions noted Course 2 Vital Signs: Vital signs: Vital Signs Temperature 97.9 F 09/05/23 19:28 Pulse Rate 91 09/06/23 00:41 Respiratory Rate 22 H 09/06/23 00:41 Blood Pressure 140/73 09/05/23 22:45 Pulse Oximetry 98 09/06/23 00:41 Oxygen Delivery Me thod Nasal Cannula 09/06/23 00:41 Oxygen Flow Rate 2 09/06/23 00:41 MDM - Seizure MDM Narrative Medical decision making narrative: This patient has a history of bladder cancer, treated at [facility]. He does not remember events of the day leading up to this episode, for example he does not remember eating lunch around 11 AM. He has no focal neurological deficits currently. No arrhythmias on the monitor. Vitals remained stable. Heart rate is come down. Head CT is negative. CTA of the chest was done, his D-dimer was positive. It is also negative. Delta troponin is 5 at 2 hours. EKG does not show acute ST wave changes. Laboratory otherwise not terribly remarkable. This is a new onset likely seizure in a 78-year-old male with a history of cancer. He will be observed. No repeated episodes here, so the patient is not loaded with antiepileptics at this time. In the differential would include cardiac arrhythmia, although there has been no arrhythmias on the monitor. Spoke with hospitalist who will see the patient. Lab Data 09/05/23 19:32 09/05/23 19:32 Labs: Radiology Impressions Chest X-Ray 09/05/23 19:43 IMPRESSION: No acute cardiopulmonary disease. Head CT 09/05/23 19:43 IMPRESSION: 1. No acute intracranial pathology. 2. Senescent changes. Chest CTA 09/05/23 21:08 IMPRESSION: 1. No evidence of pulmonary artery embolism. 2. Old granulomatous disease. 3. Several tiny foci of mucous impaction in the lower lobes without significant atelectasis. 4. No other evidence of acute cardiopulmonary disease. Laboratory Results WBC 12.65 10^3/uL (3.29-11.43) H 09/05/23 19:32 RBC 4.58 10^6/uL (3.85-5.65) 09/05/23 19:32 Hgb 14.60 g/dL (11.27-16.99) 09/05/23 19:32 Hct 42.6 % (37-53) 09/05/23 19:32 MCV 93.0 fl (82-101) 09/05/23 19:32 MCH 31.9 pg (27-33) 09/05/23 19:32 MCHC 34.3 g/dL (30-55) 09/05/23 19:32 RDW 14.2 % (12.1-15.1) 09/05/23 19:32 Plt Count 344 10^3/cmm (157-399) 09/05/23 19:32 MPV 10.1 fL (7.4-10.4) 09/05/23 19:32 Neut % (Auto) 37.9 % 09/05/23 19:32 Lymph % (Auto) 52.3 % 09/05/23 19:32 [place] % (Auto) 7.1 % 09/05/23 19:32 Eos % (Auto) 1.8 % 09/05/23 19:32 Baso % (Auto) 0.6 % 09/05/23 19:32 Neut # (Auto) 4.80 10^3/uL (1.8-7.7) 09/05/23 19:32 Lymph # (Auto) 6.6 10^3/uL (0.8-4.8) H 09/05/23 19:32 [place] # (Auto) 0.9 10^3/uL (0.2-0.9) 09/05/23 19:32 Eos # (Auto) 0.2 10^3/uL (0.0-0.8) 09/05/23 19:32 Baso # (Auto) 0.1 10^3/uL (0.0-0.1) 09/05/23 19:32 Nucleated RBC % (auto) 0 % 09/05/23 19:32 Nucleated RBCs # 0.0 /100WBC 09/05/23 19:32 ESR 25 mm/hr (0-10) H 09/05/23 19:32 PT 12.20 SECONDS (12.1-14.9) 09/05/23 19:32 INR 0.88 (0.8-1.2) 09/05/23 19:32 D-Dimer 1.56 ug/mLFEU (0-0.59) H 09/05/23 19:37 Sodium 138 mmol/L (136-145) 09/05/23 19:32 Potassium 4.3 mmol/L (3.5-5.1) 09/05/23 19:32 Chloride 98 mmol/L (98-107) 09/05/23 19:32 Carbon Dioxide 21 mmol/L (22-29) L 09/05/23 19:32 Anion Gap 23.3 (5-19) H 09/05/23 19:32 BUN 19 mg/dL (8-23) 09/05/23 19:32 Creatinine 1.4 mg/dL (0.7-1.2) H 09/05/23 19:32 GFR Calculation Not Reportable 09/05/23 19:32 Glucose 167 mg/dL (65-115) H 09/05/23 19:32 Calculated Osmolality 292 mOsm/kg (285-295) 09/05/23 19:32 Lactic Acid 8.3 mmol/L (0.5-2.2) H* 09/05/23 19:32 Uric Acid 6.2 mg/dL (3.4-7.0) 09/05/23 19:32 Calcium 9.6 mg/dL (8.5-10.5) 09/05/23 19:32 Phosphorus 3.3 mg/dL (2.5-4.5) 09/05/23 19:32 Magnesium 2.0 mg/dL (1.7-2.3) 09/05/23 19:32 Total Bilirubin 0.2 mg/dL (0.15-1.2) 09/05/23 19:32 AST 21 U/L (0-40) 09/05/23 19:32 ALT 18 U/L (0-41) 09/05/23 19:32 Alkaline Phosphatase 125 U/L (40-130) 09/05/23 19:32 Creatine Kinase 237 U/L (39-308) 09/05/23 19:32 Troponin T Baseline 20 ng/L (0-15) H 09/05/23 19:32 Troponin T 120 Minute 25.46 ng/L (0-15) H 09/05/23 21:43 Delta Troponin T 5.46 ABS# (0-10) 09/05/23 21:43 C-Reactive Protein 3.0 mg/L (0.0-4.9) 09/05/23 19:32 Total Protein 7.0 g/dL (6.6-8.7) 09/05/23 19:32 Albumin 4.0 g/dL (3.5-5.2) 09/05/23 19:32 Globulin 3.0 g/dL (1.3-4.6) 09/05/23 19:32 Procalcitonin 0.04 ng/mL (0-0.5) 09/05/23 19:32 Urine Color Yellow (Yellow) 09/05/23 20:46 Urine Appearance Clear (CLEAR) 09/05/23 20:46 Urine pH 5 (5-7) 09/05/23 20:46 Ur Specific [place] 1.015 (1.005-1.030) 09/05/23 20:46 Urine Protein 2+ (Negative) H 09/05/23 20:46 Urine Glucose (UA) 2+ (Normal) H 09/05/23 20:46 Urine Ketones 2+ (Negative) H 09/05/23 20:46 Urine Blood Neg (Negative) 09/05/23 20:46 Urine Nitrate Negative (Negative) 09/05/23 20:46 Urine Bilirubin Neg (Negative) 09/05/23 20:46 Urine Urobilinogen Neg mg/dL (Negative) 09/05/23 20:46 Ur Leukocyte Esterase Negative (Negative) 09/05/23 20:46 Urine RBC 5-10 /hpf (0-2) H 09/05/23 20:46 Urine WBC 0-4 /hpf (0-5) H 09/05/23 20:46 Ur Squamous Epith Cells 0-4 /hpf (0-5) H 09/05/23 20:46 Amorphous Sediment Not Reportable 09/05/23 20:46 Urine Bacteria 1+ /hpf (NONE) H 09/05/23 20:46 Hyaline Casts 5-10 /lpf H 09/05/23 20:46 Urine Mucus 2+ /hpf 09/05/23 20:46 Ethyl Alcohol < 10 mg/dL (0-10) 09/05/23 19:32 All radiology interpretation(s) finalized by discharge Discharge Plan Discharge Patient Disposition: Placed in Observation Admit Provider: Gucci Mojica Clinical Impression: New onset seizure Coding Level of Care Code ED Electrical Apprentice for Pricilla Colbert
[2023-09-05 20:11] LABS: Alanine Aminotransferase 18 U/L (0-41); Alkaline Phosphatase 125 U/L (40-130); Anion Gap 23.3 (5-19); Aspartate Amino Transferase 21 U/L (0-40); Blood Urea Nitrogen 19 mg/dL (8-23); Calcium 9.6 mg/dL (8.5-10.5); Carbon Dioxide 21 mmol/L (22-29); Chloride 98 mmol/L (98-107); Creatinine Clr Calc Pharmacy 45.1485; Glucose 167 mg/dL (65-115); Osmolality Calculated 292 mOsm/kg (285-295); Phosphorus 3.3 mg/dL (2.5-4.5); Potassium 4.3 mmol/L (3.5-5.1); Sodium 138 mmol/L (136-145); Total Bilirubin 0.2 mg/dL (0.15-1.2)
[2023-09-05 20:12] LABS: Alcohol Level < 10 mg/dL (0-10); Troponin(5th) Baseline 20 ng/L (0-15)
[2023-09-05] MEDS: sodium chloride 0.9% 1,000 ML 999 ML IV (20:21)
[2023-09-05 20:42] LABS: D Dimer 1.56 ug/mLFEU (0-0.59)
--- NOTE | 2023-09-05 21:08 | CTR_ITS ---
PROCEDURE INFORMATION: Exam: CTA Chest With Contrast Exam date and time: 09/05/2023 9:24 PM Age: 78 years old Clinical indication: Abnormal findings; Abnormal diagnostic tests; Elevated d-dimer; Other: Syncopal episode; Patient HX: EMS arrival for syncope. Dimer 1.56. TECHNIQUE: Imaging protocol: Computed tomographic angiography of the chest with contrast. Exam focused on the arteries. 3D rendering (Not supervised by radiologist): MIP and/or 3D reconstructed images were created by the technologist. Radiation optimization: All CT scans at this facility use at least one of these dose optimization techniques: automated exposure control; mA and/or kV adjustment per patient size (includes targeted exams where dose is matched to clinical indication); or iterative reconstruction. Contrast material: OMNI 350; Contrast volume: 80 ml; Contrast route: INTRAVENOUS (IV); COMPARISON: CR (CHEST, ) 09/05/2023 7:56 PM RADIATION DOSE METRICS: Total DLP (mGy-cm): 449.37 FINDINGS: Pulmonary arteries: The pulmonary arteries are adequately visualized to the no filling defects are identified to suggest pulmonary artery embolism. Aorta: Moderate soft and calcified plaque of the aorta. Lungs: No pulmonary consolidation or pulmonary infarct. Note made of bilateral calcified granulomata. No pulmonary mass or suspicious pulmonary nodule. Mild bibasilar atelectasis and/or scarring. Few small foci of mucous impaction in the lower lobe bronchi without peripheral atelectasis. Pleural spaces: No pleural effusion or pneumothorax. Heart: Heart size is within normal limits. There is no pericardial effusion or pericardial thickening. Coronary arteries: Severe coronary artery calcification. Lymph nodes: Multiple calcified mediastinal and bilateral hilar lymph nodes. No enlarged mediastinal, axillary, or hilar lymph nodes are identified. Diaphragm: Small hiatal hernia. Bones/joints: No acute osseous abnormalities are seen. The bones are demineralized and there is mild multilevel vertebral body height loss. Correlate with osteoporosis. Soft tissues: The soft tissues are within normal limits. CT/CT angio chest PE protcl [id number] IMPRESSION: 1. No evidence of pulmonary artery embolism. 2. Old granulomatous disease. 3. Several tiny foci of mucous impaction in the lower lobes without significant atelectasis. 4. No other evidence of acute cardiopulmonary disease.
[2023-09-05 21:19] LABS: Add Urine Microscopic? YES; Bacteria Urine 1+ /hpf; Bilirubin Urine Neg (Negative); Blood Urine Neg (Negative); Glucose Urine UA 2+ (Normal); Ketones Urine 2+ (Negative); Leukocyte Esterase Urine Negative (Negative); Nitrate Urine Negative (Negative); Protein Urine 2+ (Negative); Specific Gravity, Urine 1.015 (1.005-1.030); Squamous Epithelial Cell Urine 0-4 /hpf (0-5); Urine Appearance Clear (CLEAR); Urine Color Yellow (Yellow); Urobilinogen Urine Neg (Negative); WBC Urine 0-4 /hpf (0-5); pH Urine 5 (5-7)
[2023-09-05 21:20] LABS: Mucus Urine 2+ /hpf
[2023-09-05] MEDS: iohexol 350 mg/mL 500 mL Btl (per mL) IV (21:27)
[2023-09-05 21:51] LABS: Uric Acid 6.2 mg/dL (3.4-7.0)
[2023-09-05 22:23] LABS: Troponin 5 2HR 25.46 ng/L (0-15); Troponin 5 2HR Delta 5.46 ABS# (0-10)
--- NOTE | 2023-09-05 23:23 | P.HP_ITS ---
Providers/Chief Complaint 2 Primary Care Provider: Magnus Johnson DO Chief Complaint: SYNCOPE History of Present Illness Gilson Blandon is a 78 year old male with a past medical history of bladder cancer, history of smoking quit 2 years ago, history of COPD, no history of CAD, no history of strokes, no history of diabetes, who presents [facility] for syncope and collapse episode. Today at roughly 6 PM, patient was sitting at the table with his , when suddenly he became confused he started pointing and looking towards the left side, pointed to something on the left side using his right hand, and then suddenly slumped over the chair into the table, became unresponsive, thought maybe he was not breathing but she is not exactly sure, he was gripping his chair, she was able to get him off the chair to the ground, she feels that his eyes might be rolled back no facial droop no slurring of his words, no seizure-like episode, he was unresponsive on the ground for about 10 minutes, no urine incontinence no bowel incontinence before EMS arrived, she tells me that after EMS arrived he was a bit confused not back to his normal self, patient does not remember the episode at all, nothing unusual during Wednesday, no recent falls, no recent injuries, denies any unsteadiness on his feet, no focal weakness no focal paresthesias, no headache, no blurry vision, no chest pain, no cardiovascular history Review of Systems 2 Const: Denies: fever(s), chills, fatigue or malaise Eyes: Denies: change in vision Card: Denies: chest pain Resp: Denies: dyspnea GI: Denies: abdominal pain : Denies: flank pain Musc: Denies: neck pain, back pain or joint pain Neuro: Denies: headache(s), numbness in extremities, weakness in extremities, lack of coordination, frequent falls, dizziness or vertigo Psych: Denies: anxiety Endo: Denies: polyuria Medications/Allergies Home Medications Medication Instructions Recorded Confirmed Last Taken Type cholecalciferol (vitamin D3) 25 25 mcg PO DAILY 09/04/21 05/03/23 09/07/21 History mcg (1,000 unit) capsule xetwthox-scubfopk-passt acid 400 1 tab PO DAILY 09/04/21 05/03/23 Unknown History mcg-vit K 20 mcg-lycop 300 mcg tablet (One-A-Day Men's Multivitamin) diazepam 5 mg tablet 2.5 - 5 mg PO BID PRN Anxiety 09/09/21 05/03/23 Unknown History prednisone 20 mg tablet 20 mg PO DAILY #7 tabs 05/03/23 05/03/23 Unknown Rx metoprolol tartrate 25 mg tablet 25 mg PO BID #180 tabs 06/16/23 Unknown Rx pravastatin 20 mg tablet 20 mg PO BEDTIME #90 tabs 06/16/23 Unknown Rx irbesartan 300 1 tab PO DAILY #90 tabs 06/29/23 Unknown Rx mg-hydrochlorothiazide 12.5 mg tablet (Avalide) allopurinol 200 mg tablet 200 mg PO DAILY uric acid level 07/23/23 Unknown Rx #90 tabs Allergies Allergy/AdvReac Type Severity Reaction Status Date / Time No Known Allergies Allergy Verified 09/05/23 19:37 PFSH Acute 2 PFSH: Medical History Hx of bladder cancer Is on BCG History of tumor FATTY RUMOR REMOVED FROM LEFT LEG ABOVE KNEE Hyperlipidemia Hypertension Lesion of bladder Gross hematuria Surgical History History of cystoscopy Family History Father , AT AGE 67 Accidentally struck by tree Mother , AT AGE 84 Sepsis Social History Smoking and tobacco/nicotine status: current every day tobacco/nicotine user Alcohol intake: never Substance/Drug Use: never Marital status: Current occupational status: retired Vitals/I&O/Wt Last Vital Signs Temp 97.9 F 09/05/23 19:28 Pulse 81 09/05/23 22:45 Resp 24 H 09/05/23 22:45 BP 140/73 09/05/23 22:45 Pulse Ox 100 09/05/23 22:45 O2 Del Method Room Air 09/05/23 20:24 Weight last 48 hrs Weight 83.915 kg Physical Exam 2 Const: COMMON NORMALS: no acute distress and patient oriented x3 HENMT: COMMON NORMALS: normocephalic HEAD & SCALP: normocephalic Eye: COMMON NORMALS: Equal, round and reactive pupils present and EOMs intact bilaterally Neck/C-Spine: COMMON NORMALS: full ROM and no lymphadenopathy Resp: COMMON NORMALS: normal respiratory effort, No retractions, No use of accessory muscles and clear to auscultation bilaterally AUSCULTATION: clear to auscultation bilaterally Cardio: COMMON NORMALS: regular rate, regular rhythm, S1 normal heart sound present and S2 normal heart sound present RATE: regular rate RHYTHM: r egular rhythm HEART SOUNDS: S1 normal heart sound present and S2 normal heart sound present GI: COMMON NORMALS: Normal to inspection, nondistended, normoactive bowel sounds present, Soft to palpation and non-tender Extremity: COMMON NORMALS: no calf tenderness and no pedal edema Neuro: COMMON NORMALS: patient oriented x3, CN's II-XII intact bilaterally, moves all extremities and no focal motor deficits Psych: COMMON NORMALS: mental status grossly normal Data 09/05/23 19:32 09/05/23 19:32 A&P Assessment and plan (1) Syncope and collapse: (2) Bladder cancer: (3) COPD (chronic obstructive pulmonary disease): (4) Acute kidney injury: Plan Syncope and collapse -Etiology concerning for cardiac in nature -Does not seem like a seizure-like episode, no urinary continence no bowel incontinence, no shaking-like episode, but was stiff according to -Certainly stroke is in the differential, however no focal weakness, currently NIH stroke scale 0, CT head within normal limits -The exact mechanism behind him turning to the left and pointing up to something on the right is unclear -D-dimer elevated, CT angiogram negative for PE Plan -Serial EKGs, serial troponins, telemetry monitoring -Cardiac echo -Carotid artery ultrasound -Neurochecks, and a stroke scale, aspiration precautions -Orthostatic vitals -Will consider event monitor on discharge -Consider cardiology evaluation based on clinical progress further workup, can certainly consider stress testing -TSH, CPK, Bnp -Full code -Lovenox for DVT prophylaxis ALEXIA, creatinine 1.4, IV fluids, CPK Attestations 2 Medical Necessity Statement*: Patient requires hospitalization, inpatient, greater than 2 midnights, for syncope and collapse Diagnoses Syncope and collapse R55 Bladder cancer C67.9 COPD (chronic obstructive pulmonary disease) J44.9 Acute kidney injury N17.9
[2023-09-05 23:44] LABS: Erythrocyte Sedimentation Rate 25 mm/hr (0-10)
[2023-09-05 23:51] LABS: INR 0.88 (0.8-1.2)
[2023-09-05 23:57] LABS: Creatine Phosphokinase 237 U/L (39-308)
[2023-09-06] VITALS (13 sets, daily range): BP systolic 126–169; BP diastolic 65–97; PULSE 72–105; RESP 12–24; TEMP 36.5–36.9; O2SAT 94–98; BMI 28.3
[2023-09-06 00:01] LABS: Lactic Sepsis W/Reflex 8.3 mmol/L (0.5-2.2)
[2023-09-06 00:02] LABS: Procalcitonin 0.04 ng/mL (0-0.5)
[2023-09-06 01:29] LABS: Reflex Lactate Order REFLEX LACTIC ORDERD
[2023-09-06 01:49] LABS: Troponin 5 6HR 25.21 ng/L (0-15); Troponin 5 6HR Delta 5.21 ng/L (0-12)
--- NOTE | 2023-09-06 01:56 | XRR_ITS ---
PROCEDURE INFORMATION: Exam: XR Right Shoulder Exam date and time: 09/06/2023 1:21 AM Age: 78 years old Clinical indication: Right; Patient HX: RT shoulder pain post fall yesterday TECHNIQUE: Imaging protocol: Radiologic exam of the right shoulder. Views: 1 view. COMPARISON: CT angio chest PE protcl [id number] 09/05/2023 9:24 PM FINDINGS: Limitations: Only single view of the right shoulder is provided. Bones/joints: Normal alignment. Osseous demineralization. No evidence of acute fracture or dislocation on single provided image. Soft tissues: Normal. XR/XR shoulder RT 1V [id number] IMPRESSION: No evidence of acute fracture or dislocation on single provided image.
[2023-09-06] MEDS: enoxaparin 40 mg/0.4 mL Syringe SUBCUT (02:20)
[2023-09-06] MEDS: pantoprazole 40 mg SDV IVP (02:20)
[2023-09-06] MEDS: aspirin 81 mg EC Tablet PO ×2 (02:20→09:43)
[2023-09-06] MEDS: acetaminophen 325 mg Tablet 650 MG PO (02:28)
[2023-09-06] MEDS: sodium chloride 0.9% 1,000 ML 75 ML IV (02:39)
[2023-09-06 02:40] LABS: Chol HDL Ratio 7.11 mg/dL (1.0-5.00); Cholesterol 135 mg/dL (0-200); HDL Cholesterol 19 mg/dL (60-100); LDL Cholesterol Calculated 42 mg/dL (50-129); LDL HDL Ratio 2.21 RATIO (0.00-3.22); Thyroid Stimulating Hormone 2.23 uIU/mL (0.27-4.20); Triglycerides 371 mg/dL (0-150)
[2023-09-06 02:42] LABS: Estmated Average Glucose 148; Hemoglobin A1C 6.8 % (4.0-6.0)
[2023-09-06 05:32] LABS: Basophils % 0.4 %; Eosinophils # 0.1 10^3/uL (0.0-0.8); Eosinophils % 0.9 %; Hematocrit 35.7 % (37-53); Lymphocytes # 2.5 10^3/uL (0.8-4.8); Lymphocytes % 22.1 %; Mean Corpuscular HGB Conc 33.3 g/dL (30-55); Mean Corpuscular Hemoglobin 30.7 pg (27-33); Mean Platelet Volume 10.3 fL (7.4-10.4); Monocytes % 9.1 %; Neutrophils # 7.51 10^3/uL (1.8-7.7); Neutrophils % 67.2 %; Nucleated Red Blood Cells % 0 %; Platelet Count 287 10^3/cmm (157-399); Red Blood Count 3.88 10^6/uL (3.85-5.65); Red Cell Distribution Width 14.4 % (12.1-15.1); White Blood Count 11.16 10^3/uL (3.29-11.43)
[2023-09-06 05:48] LABS: Lactic Acid level (Lactate) 0.9 mmol/L (0.5-2.2)
[2023-09-06 05:52] LABS: Alanine Aminotransferase 15 U/L (0-41); Albumin Level 3.4 g/dL (3.5-5.2); Alkaline Phosphatase 103 U/L (40-130); Anion Gap 11.8 (5-19); Aspartate Amino Transferase 21 U/L (0-40); Blood Urea Nitrogen 19 mg/dL (8-23); Calcium 8.8 mg/dL (8.5-10.5); Carbon Dioxide 24 mmol/L (22-29); Chloride 108 mmol/L (98-107); Creatinine Clr Calc Pharmacy 48.8341; Globulin 2.8 g/dL (1.3-4.6); Glucose 148 mg/dL (65-115); Magnesium 1.8 mg/dL (1.7-2.3); Osmolality Calculated 295 mOsm/kg (285-295); Phosphorus 2.2 mg/dL (2.5-4.5); Potassium 3.8 mmol/L (3.5-5.1); Sodium 140 mmol/L (136-145); Total Bilirubin 0.2 mg/dL (0.15-1.2); Total Protein 6.2 g/dL (6.6-8.7)
--- NOTE | 2023-09-06 07:48 | P.PN_ITS ---
Subjective 2 Subjective: pt seen at bedside this AM. states he is feeling back to normal. no further symptoms today. tolerating diet well Vitals/I&O/Wt Last Vital Signs Temp 98.4 F 09/06/23 04:00 Pulse 77 09/06/23 06:00 Resp 12 09/06/23 04:00 BP 128/65 09/06/23 04:00 Pulse Ox 94 09/06/23 01:23 O2 Del Method Room Air 09/06/23 01:24 O2 Flow Rate 2 09/06/23 00:41 09/05/23 09/06/23 09/06/23 22:59 06:59 14:59 Output Total 0 / 0 Balance 0 / 0 Weight last 48 hrs Weight 186 lb Weight 186 lb 12.8 oz Weight 185 lb Physical Exam 2 Narrative: General: AOx3, no acute distress, well developed, well nourished, appears stated age psych: appropriate mood and affect. good judgment and insight. No suicidal or homicidal ideation. Head: atraumatic, normocephalic, no mass/lesions Ears: clear external auditory canals, bilat TM w/o bulging/fluid/discharge. TM with visible landmarks, good light reflex. Hearing intact Eyes: conjunctiva clear w/o exudate or hemorrhage. non-icteric, EOM intact, PERRLA. no signs of nystagmus Nose: nasal mucosa pink, septum midline Oropharynx: good dentition, pink moist mucosa, non-deviated tongue, no buccal nodules/lesions. no pharyngeal exudate Neck: FROM, no lymphadenopathy, no tracheal deviation, non tender, thyroid gland normal w/o mass. supple Chest: atraumatic, symmetrical CVD: RRR, normal S1 and S2, no M/R/G. 2+ pulse x 4 extremities, no JVD, no carotid bruit. Lungs: clear lung sounds in all estrada, no rhonchi, wheezing, rales. Abdomen: NT, ND, soft, NABS. No hepatosplenomegaly, no mass. umbilicus midline w/o herniation : not done on todays examination Rectal: not done on todays examination Spine: no visible deformities, FROM, 5/5 strength, no lordosis or kyphosis. no paraspinal ttp.non tender bony features. no discomfort with ROM Extremities: FROM and 5/5 strength in BUE and BLE. no visible joint abnormalities on active and passive ROM. Neuro: CNII-XII grossly intact. No atrophy, weakness, tremors or clonus.? 2+ DTR, no sensory abnormalities. Skin:? no rash, vesicles, lesions. Data 09/06/23 04:32 09/06/23 04:32 A&P Assessment and plan (1) Syncope and collapse: possibly cardiac in nature (2) Bladder cancer: (3) COPD (chronic obstructive pulmonary disease): (4) Acute kidney injury: Cr 1.4 to 1.3 (5) Type 2 diabetes mellitus: new onset DM2 LDSSI with accuchecks will discharge on metformin 500mg BID Plan Syncope and collapse -Etiology concerning for cardiac in nature -Does not seem like a seizure-like episode, no urinary continence no bowel incontinence, no shaking-like episode, but was stiff according to -Certainly stroke is in the differential, however no focal weakness, currently NIH stroke scale 0, CT head within normal limits -The exact mechanism behind him turning to the left and pointing up to something on the right is unclear -D-dimer elevated, CT angiogram negative for PE -ECHO: EF 55% with G1DD, thickened aortic valve -carotid negative Plan -Serial EKGs, serial troponins, telemetry monitoring -discontinue IV NS 75cc/hr -neurochecks -orthoastatic vitals -consider event monitor at time of discharge -consider cardiology eval, possible stress testing -FULL CODE -ZENAIDA for DVT prophylaxis -will discharge with cardiac event monitor Attestations 2 Medical Necessity Statement*: will require 2 overnight stays due to medical condition Coding Level of Care Code Acute Code for [facility] Diagnoses Syncope and collapse R55 Bladder cancer C67.9 COPD (chronic obstructive pulmonary disease) J44.9 Acute kidney injury N17.9 Type 2 diabetes mellitus E11.9
--- NOTE | 2023-09-06 08:30 | USCV_ITS ---
Gilson Blandon Age: 78 Gender: M : 1945 Exam Date: 09/06/2023 11:25 Ordering Phys: Gucci Mojica MD Technologist: CARL Exam Location: [facility] – [place] Indication: Syncope Risk Factors: Previous Vascular Surgery: Right Brachial BP: / Left Brachial BP: / Right Left Velocity (cm/s) Spectral Plaque Velocity (cm/s) Spectral Plaque Syst/Diast Broadening Syst/Diast Broadening 74.50/ 15.30 Prox CCA 88.90 / 22.70 62.60/ 12.60 Mid CCA 96.30 / 22.20 47.40/ 10.10 Distal CCA 98.40 / 22.20 48.00/ 8.80 Prox ICA 62.10 / 10.70 44.00/ 12.90 Mid ICA 83.90 / 23.20 62.70/ 16.30 Distal ICA 68.40 / 22.50 46.90 ECA 88.80 1.30 ICA/CCA 0.90 Antegrade Vertebral Antegrade 62.50/ 20.30 cm/s 42.90/ 15.70 cm/s Bi Subclavian Bi 120.2 148.1 0 0 FINDINGS Comparison: none available. No significant elevation of systolic or diastolic velocities. Waveforms are normal. Mild carotid atherosclerosis. CONCLUSIONS Bilateral ICA stenosis less than 50%. Dr. Faith Gallardo DO (Electronically Signed) Final Date: 06 September 2023 14:41 S
--- NOTE | 2023-09-06 08:30 | USCV_ITS ---
Gilson Blandon Age: 78 Gender: M : 1945 Exam Date: 09/06/2023 07:39 Ordering Phys: Gucci Mojica MD Technologist: Exam Location: [facility] [place] Indication: CP BP: 140 / 84 HR: 81 Rhythm: Sinus Technical Quality: Adequate MEASUREMENTS (Male / Female) Normal Values 2D ECHO LV Diastolic Diameter PLAX 4.0 cm 4.2 - 5.9 / 3.9 - 5.3 cm IVS Diastolic Thickness 1.1 cm 0.6 - 1.0 / 0.6 - 0.9 cm IVS Systolic Thickness 1.7 cm LVPW Diastolic Thickness 1.3 cm 0.6 - 1.0 / 0.6 - 0.9 cm LVPW Systolic Thickness 1.7 cm LVOT Diameter 2.0 cm LV Ejection Fraction 2D Teich 64.1 % LV Ejection Fraction MOD 2C 49.5 % LV Ejection Fraction 2C AL 48.8 % LA Diameter 3.0 cm RA Systolic Volume 4C AL 22.3 ml RA Systolic Volume 4C MOD 21.5 ml Aorta at Sinotubular Diameter 2.8 cm IVC Diameter 1.7 cm M-MODE LA Ao Ratio MM 1.3 AV Cusp Separation MM 2.5 cm DOPPLER AV Peak Velocity 139.0 cm/s LVOT Peak Velocity 99.0 cm/s AV Area Cont Eq vti 2.3 cm squared AV Area Cont Eq pk 2.2 cm squared MV Peak Velocity 92.0 cm/s MV Area PHT 3.2 cm squared Mitral E to A Ratio 0.8 TV Peak Velocity 155.5 cm/s TR Peak Velocity 191.0 cm/s TR Peak Gradient 14.6 mmHg TV Peak E Velocity 100.0 cm/s Right Atrial Pressure 3.0 mmHg Pulmonary Artery Systolic Pressu 17.6 mmHg FINDINGS Left Ventricle Normal left ventricular size with diminished LV systolic function, EF 55%.mild left ventricular hypertrophy. Grade I/IV diastolic dysfunction (abnormal relaxation filling pattern), normal to mildly elevated filling pressures. Right Ventricle The right ventricle is normal in size and function. Right Atrium The right atrium is normal in size. Left Atrium The left atrium is normal in size. Mitral Valve No gross abnormalities noted Aortic Valve Thickened aortic valve. Tricuspid Valve No gross abnormalities noted Pulmonic Valve Pulmonic valve not well visualized. Pericardium Normal pericardium without effusion. Aorta Normal ascending aorta dimension. IVC The inferior vena cava appears normal. CONCLUSIONS Normal left ventricular size with diminished LV systolic function, EF 55%.mild left ventricular hypertrophy. Grade I/IV diastolic dysfunction (abnormal relaxation filling pattern), normal to mildly elevated filling pressures. Thickened aortic valve. There is no pericardial effusion. There are no intracardiac masses. No similar previous studies are available for comparison Dr Panfilo Corrales MD FACC (Electronically Signed) Final Date: 06 September 2023 13:33 S
[2023-09-06] MEDS: allopurinol 100 mg Tablet 200 MG PO (09:43)
[2023-09-06] MEDS: metoprolol tartrate 25 mg Tablet PO (09:43)
[2023-09-06] MEDS: cholecalciferol (vitamin D3) 1,000 unit Tablet 1000 UNIT PO (09:43)
--- NOTE | 2023-09-06 16:01 | P.DS_ITS ---
Discharge Providers Date of Admission: 09/06/23 00:00 Date of Discharge: September 06, 2023 Attending Provider at Admission: Gucci Mojica MD Attending Provider at Discharge: Hunter Valiente MD Primary Care Provider: Magnus Johnson DO Diagnoses at Discharge Discharge Diagnosis (1) Syncope and collapse: Status: Acute (2) Bladder cancer: Status: Acute (3) COPD (chronic obstructive pulmonary disease): Status: Acute (4) Acute kidney injury: Status: Acute (5) Type 2 diabetes mellitus: Status: Acute Reason for Visit Reason for Visit: SYNCOPE Hospital Course Hospital Course 78 year old male with a past medical history of bladder cancer, history of smoking quit 2 years ago, history of COPD, no history of CAD, no history of strokes, no history of diabetes, who presented [facility] for syncope and collapse episode at home. duration of unresponsiveness x 10 minutes. some anterior tongue biting but no lateral. pt was confused upon awakening. no seisure like episode per patietns or EMS document. upon arrival to hospital he was back to his normal self per patient. bloodwork, MRI head, MRA head, EKG, carotid US, and ECHO where all without significant abnormalities. Patient has tolerated PO diet well, has no focal weakness or paresthesia/DUMONT or any chest pain/palitations. Pt agreeable to having event monitor scheduled for outpatient evaluation. Event possible TIA vs arrhtymia; however, no clear diagnosis determined by discharge date. Physical Exam Narrative: General: AOx3, no acute distress, well developed, well nourished, appears stated age psych: appropriate mood and affect. good judgment and insight. No suicidal or homicidal ideation. Head: atraumatic, normocephalic, no mass/lesions Ears: clear external auditory canals, bilat TM w/o bulging/fluid/discharge. TM with visible landmarks, good light reflex. Hearing intact Eyes: conjunctiva clear w/o exudate or hemorrhage. non-icteric, EOM intact, PERRLA. no signs of nystagmus Nose: nasal mucosa pink, septum midline Oropharynx: good dentition, pink moist mucosa, non-deviated tongue, no buccal nodules/lesions. no pharyngeal exudate Neck: FROM, no lymphadenopathy, no tracheal deviation, non tender, thyroid gland normal w/o mass. supple Chest: atraumatic, symmetrical CVD: RRR, normal S1 and S2, no M/R/G. 2+ pulse x 4 extremities, no JVD, no carotid bruit. Lungs: clear lung sounds in all estr[place], no rhonchi, wheezing, rales. Abdomen: NT, ND, soft, NABS. No hepatosplenomegaly, no mass. umbilicus midline w/o herniation : not done on todays examination Rectal: not done on todays examination Spine: no visible deformities, FROM, 5/5 strength, no lordosis or kyphosis. no paraspinal ttp.non tender bony features. no discomfort with ROM Extremities: FROM and 5/5 strength in BUE and BLE. no visible joint abnormalities on active and passive ROM. Neuro: CNII-XII grossly intact. No atrophy, weakness, tremors or clonus.? 2+ DTR, no sensory abnormalities. Skin:? no rash, vesicles, lesions. Discharge Data Studies Completed and Pending Completed Studies During Hospitalization Category Date Time Status CT angio chest PE protcl [id number] Urgent Cat Scan 09/05/23 21:[address] head wo con* [id number] Stat Cat Scan 09/05/23 19:43 Completed XR chest 1V portable [id number] Stat Exams 09/05/23 19:43 Completed XR shoulder RT 1V [id number] Routine Exams 09/06/23 01:56 Completed CV carotid duplex BI* [id number] Stat Ultrasound 09/06/23 08:30 Completed CV. echo complete* [id number] Stat Ultrasound 09/06/23 08:30 Completed Pending at discharge Category Date Time Status CMP [Comprehensive Metabolic Panel] AM LABS Lab 09/06/23 07:59 Ordered Radiology Impressions Chest X-Ray 09/05/23 19:43 IMPRESSION: No acute cardiopulmonary disease. Head CT 09/05/23 19:43 IMPRESSION: 1. No acute intracranial pathology. 2. Senescent changes. Chest CTA 09/05/23 21:08 IMPRESSION: 1. No evidence of pulmonary artery embolism. 2. Old granulomatous disease. 3. Several tiny foci of mucous impaction in the lower lobes without significant atelectasis. 4. No other evidence of acute cardiopulmonary disease. Shoulder X-Ray 09/06/23 01:56 IMPRESSION: No evidence of acute fracture or dislocation on single provided image. Laboratory Results WBC 11.16 10^3/uL (3.29-11.43) 09/06/23 04:32 RBC 3.88 10^6/uL (3.85-5.65) 09/06/23 04:32 Hgb 11.90 g/dL (11.27-16.99) 09/06/23 04:32 Hct 35.7 % (37-53) L 09/06/23 04:32 MCV 92.0 fl (82-101) 09/06/23 04:32 MCH 30.7 pg (27-33) 09/06/23 04:32 MCHC 33.3 g/dL (30-55) 09/06/23 04:32 RDW 14.4 % (12.1-15.1) 09/06/23 04:32 Plt Count 287 10^3/cmm (157-399) 09/06/23 04:32 MPV 10.3 fL (7.4-10.4) 09/06/23 04:32 Neut % (Auto) 67.2 % 09/06/23 04:32 Lymph % (Auto) 22.1 % 09/06/23 04:32 [place] % (Auto) 9.1 % 09/06/23 04:32 Eos % (Auto) 0.9 % 09/06/23 04:32 Baso % (Auto) 0.4 % 09/06/23 04:32 Neut # (Auto) 7.51 10^3/uL (1.8-7.7) 09/06/23 04:32 Lymph # (Auto) 2.5 10^3/uL (0.8-4.8) 09/06/23 04:32 [place] # (Auto) 1.0 10^3/uL (0.2-0.9) H 09/06/23 04:32 Eos # (Auto) 0.1 10^3/uL (0.0-0.8) 09/06/23 04:32 Baso # (Auto) 0.0 10^3/uL (0.0-0.1) 09/06/23 04:32 Nucleated RBC % (auto) 0 % 09/06/23 04:32 Nucleated RBCs # 0.0 /100WBC 09/06/23 04:32 ESR 25 mm/hr (0-10) H 09/05/23 19:32 PT 12.20 SECONDS (12.1-14.9) 09/05/23 19:32 INR 0.88 (0.8-1.2) 09/05/23 19:32 D-Dimer 1.56 ug/mLFEU (0-0.59) H 09/05/23 19:37 Sodium 140 mmol/L (136-145) 09/06/23 04:32 Potassium 3.8 mmol/L (3.5-5.1) 09/06/23 04:32 Chloride 108 mmol/L (98-107) H 09/06/23 04:32 Carbon Dioxide 24 mmol/L (22-29) 09/06/23 04:32 Anion Gap 11.8 (5-19) 09/06/23 04:32 BUN 19 mg/dL (8-23) 09/06/23 04:32 Creatinine 1.3 mg/dL (0.7-1.2) H 09/06/23 04:32 GFR Calculation Not Reportable 09/06/23 04:32 Glucose 148 mg/dL (65-115) H 09/06/23 04:32 Estimat Average Glucose 148 09/06/23 00:00 Hemoglobin A1c 6.8 % (4.0-6.0) H 09/06/23 00:00 Calculated Osmolality 295 mOsm/kg (285-295) 09/06/23 04:32 Lactic Acid 8.3 mmol/L (0.5-2.2) H* 09/05/23 19:32 Lactic Acid (Sepsis) 0.9 mmol/L (0.5-2.2) 09/06/23 04:32 Uric Acid 6.2 mg/dL (3.4-7.0) 09/05/23 19:32 Calcium 8.8 mg/dL (8.5-10.5) 09/06/23 04:32 Phosphorus 2.2 mg/dL (2.5-4.5) L 09/06/23 04:32 Magnesium 1.8 mg/dL (1.7-2.3) 09/06/23 04:32 Total Bilirubin 0.2 mg/dL (0.15-1.2) 09/06/23 04:32 AST 21 U/L (0-40) 09/06/23 04:32 ALT 15 U/L (0-41) 09/06/23 04:32 Alkaline Phosphatase 103 U/L (40-130) 09/06/23 04:32 Creatine Kinase 237 U/L (39-308) 09/05/23 19:32 Troponin T Baseline 20 ng/L (0-15) H 09/05/23 19:32 Troponin T 120 Minute 25.46 ng/L (0-15) H 09/05/23 21:43 Delta Troponin T 5.46 ABS# (0-10) 09/05/23 21:43 Troponin T Hi Sens 6Hr 25.21 ng/L (0-15) H 09/06/23 01:27 Troponin T Hi Sens 6Hr Delta 5.21 ng/L (0-12) 09/06/23 01:27 C-Reactive Protein 3.0 mg/L (0.0-4.9) 09/05/23 19:32 Total Protein 6.2 g/dL (6.6-8.7) L 09/06/23 04:32 Albumin 3.4 g/dL (3.5-5.2) L 09/06/23 04:32 Globulin 2.8 g/dL (1.3-4.6) 09/06/23 04:32 Triglycerides 371 mg/dL (0-150) H 09/06/23 00:00 Cholesterol 135 mg/dL (0-200) 09/06/23 00:00 LDL Cholesterol, Calc 42 mg/dL (50-129) L 09/06/23 00:00 HDL Cholesterol 19 mg/dL (60-100) L 09/06/23 00:00 LDL/HDL Ratio 2.21 RATIO (0.00-3.22) 09/06/23 00:00 Cholesterol/HDL Ratio 7.11 mg/dL (1.0-5.00) H 09/06/23 00:00 Procalcitonin 0.04 ng/mL (0-0.5) 09/05/23 19:32 TSH 2.23 uIU/mL (0.27-4.20) 09/06/23 00:00 Urine Color Yellow (Yellow) 09/05/23 20:46 Urine Appearance Clear (CLEAR) 09/05/23 20:46 Urine pH 5 (5-7) 09/05/23 20:46 Ur Specific [place] 1.015 (1.005-1.030) 09/05/23 20:46 Urine Protein 2+ (Negative) H 09/05/23 20:46 Urine Glucose (UA) 2+ (Normal) H 09/05/23 20:46 Urine Ketones 2+ (Negative) H 09/05/23 20:46 Urine Blood Neg (Negative) 09/05/23 20:46 Urine Nitrate Negative (Negative) 09/05/23 20:46 Urine Bilirubin Neg (Negative) 09/05/23 20:46 Urine Urobilinogen Neg mg/dL (Negative) 09/05/23 20:46 Ur Leukocyte Esterase Negative (Negative) 09/05/23 20:46 Urine RBC 5-10 /hpf (0-2) H 09/05/23 20:46 Urine WBC 0-4 /hpf (0-5) H 09/05/23 20:46 Ur Squamous Epith Cells 0-4 /hpf (0-5) H 09/05/23 20:46 Amorphous Sediment Not Reportable 09/05/23 20:46 Urine Bacteria 1+ /hpf (NONE) H 09/05/23 20:46 Hyaline Casts 5-10 /lpf H 09/05/23 20:46 Urine Mucus 2+ /hpf 09/05/23 20:46 Ethyl Alcohol < 10 mg/dL (0-10) 09/05/23 19:32 Vitals Last Vital Signs Temp 98.5 F 09/06/23 15:47 Pulse 73 09/06/23 15:47 Resp 22 H 09/06/23 15:47 BP 126/70 09/06/23 15:47 Pulse Ox 96 09/06/23 15:47 O2 Del Method Room Air 09/06/23 15:47 O2 Flow Rate 2 09/06/23 00:41 Discharge Plan Discharge Patient Disposition: Home Condition: Stable Prescriptions: Continued cholecalciferol (vitamin D3) 25 mcg (1,000 unit) capsule 25 mcg PO DAILY One-A-Day Men's Multivitamin 400-20-300 mcg tablet 1 tab PO DAILY metoprolol tartrate 25 mg tablet 25 mg PO BID Qty: 180 3RF pravastatin 20 mg tablet 20 mg PO BEDTIME Qty: 90 3RF irbesartan-hydrochlorothiazide [Avalide] 300-12.5 mg tablet 1 tab PO DAILY Qty: 90 3RF allopurinol 200 mg tablet 200 mg PO DAILY Qty: 90 1RF Discharge Orders: Discharge Order (Routine); Ordered 09/06/23 Ordered By: Hunter Valiente Referrals: Magnus Johnson, [Primary Care Provider] - Discharge Diet: Cardiac Discharge Activity: Resume usual activity Patient Instructions: Opioid Safety Discharge Attestations Time Spent in Discharge Care*: less than 30 min Quality Metrics Clinical Quality Measures [ No reported AMI, CVA or VTE this stay] Coding Level of Care Code 78985 Diagnoses Syncope and collapse R55 Bladder cancer C67.9 COPD (chronic obstructive pulmonary disease) J44.9 Acute kidney injury N17.9 Type 2 diabetes mellitus E11.9
== END 2023-09-06 17:00 | disposition home or self-care (01) | DRG 312 ==
LOC: ER 22:50 → CSU 09-06 00:32
PROVIDERS: Admitting Provider Family Medicine; Emergency Provider Emergency Medicine; PCP Family Medicine; Visit Provider Family Medicine
DX: R55 Syncope and collapse (principal); N17.9 Acute kidney failure, unspecified; Z85.51 Personal history of malignant neoplasm of bladder; Z87.891 Personal history of nicotine dependence; J44.9 Chronic obstructive pulmonary disease, unspecified; E78.5 Hyperlipidemia, unspecified; I10 Essential (primary) hypertension
CPT/HCPCS: 36415; 70450; 71045; 71275; 73020; 80053; 80061; 80307; 81001; 82550; 83036; 83605; 83735; 84100; 84145; 84443; 84484; 84550; 85025; 85378; 85610; 85651; 86140; 93005; 93306; 93880; 96360; 96372; 97161; 97165; 97530; 99285; C9113; J1650; J7030; Q9967

== ENCOUNTER → 2024-02-21 10:45 | Outpatient (BNVA) | payer MEDICARE, BC, SELFPAY | PROVIDERS: PCP Family Medicine; Visit Provider Family Medicine | DX: E78.5 Hyperlipidemia, unspecified (principal); E11.9 Type 2 diabetes mellitus without complications; J44.9 Chronic obstructive pulmonary disease, unspecified; M19.90 Unspecified osteoarthritis, unspecified site | CPT/HCPCS: 80053; 80061; 83036; 84550 ==

== ENCOUNTER 2024-07-15 11:59 | Emergency (ER) | payer BC, MEDICARE, SELFPAY ==
[2024-07-15 12:00] VITALS: BP 151/72; PULSE 79; RESP 16; TEMP 36.9; O2SAT 88; BMI 27.3
--- NOTE | 2024-07-15 12:05 | CTR_ITS ---
PROCEDURE INFORMATION: Exam: CT Head Without Contrast Exam date and time: 07/15/2024 12:32 PM Age: 79 years old Clinical indication: Altered mental status/memory loss and syncope and collapse TECHNIQUE: Imaging protocol: Computed tomography of the head without contrast. Radiation optimization: All CT scans at this facility use at least one of these dose optimization techniques: automated exposure control; mA and/or kV adjustment per patient size (includes targeted exams where dose is matched to clinical indication); or iterative reconstruction. COMPARISON: CT head wo con* [id number] 09/05/2023 8:01 PM RADIATION DOSE METRICS: Total DLP (mGy-cm): 1039.1 FINDINGS: Brain: Mild cerebral atrophy. [id number] areas of low-attenuation in the white matter most likely representing small vessel ischemic change. No evidence of mass effect, intracranial hemorrhage or extra-axial collection. No acute infarct. Low-attenuation areas in basal ganglia likely represent remote small-vessel ischemic change or perivascular spaces. Cerebral ventricles: Ventricular size and configuration within normal limits for age. Paranasal sinuses: Visualized paranasal sinuses are unremarkable. Mastoid air cells: Mastoids are within normal limits. Orbital cavities: Orbits are within normal limits. Bones: No significant pathology. Soft tissues: No significant pathology. CT/CT head wo con* [id number] IMPRESSION: No acute pathology or significant interval change.
--- NOTE | 2024-07-15 12:05 | XRR_ITS ---
PROCEDURE INFORMATION: Exam: XR Chest Exam date and time: 07/15/2024 12:09 PM Age: 79 years old Clinical indication: Other: Syncope TECHNIQUE: Imaging protocol: Radiologic exam of the chest. Views: 1 view. COMPARISON: CT angio chest PE protcl [id number] 09/05/2023 9:24 PM FINDINGS: Lungs: Calcified pulmonary granulomata are present. Mild coarsening of the pulmonary interstitium without change. Pleural spaces: No pleural effusion. Heart/Mediastinum: Cardiomediastinal contours within normal limits. Bones/joints: Mild degenerative change present in the spine. XR/XR chest 1V portable [id number] IMPRESSION: No acute pathology or significant interval change.
--- NOTE | 2024-07-15 12:09 | ED_ITS ---
HPI - General Adult 2 General: Chief complaint: Syncope Stated complaint: syncopal episode Time Seen by Provider: 07/15/24 12:00 Source: patient and EMS Mode of arrival: EMS Limitations: no limitations History of Present Illness: 79-year-old history of syncopal events i n the past. Per EMS roughly an hour ago at home patient had passed out slid out of his chair and had some confusion after. Possible tremor-like activity but no seizure patient is now awake and alert he is answering most my questions appropriately besides the year he has no complaints at this time he has no slurred speech no weakness he is ambulatory here at bedside. Patient denies headache chest pain or vomiting. He does not remember the event. Related Data Home Medications ?Medication ?Instructions ?Recorded ?Confirmed cholecalciferol (vitamin D3) 25 25 mcg PO DAILY 07/15/24 mcg (1,000 unit) capsule [id number]-ttjfkxpm-arccn acid 400 1 tab PO DAILY 07/15/24 mcg-vit K 20 mcg-lycop 300 mcg tablet (One-A-Day Men's Multivitamin) amlodipine 5 mg tablet 5 mg PO DAILY 07/15/2407/15 temazepam 7.5 mg capsule 7.5 mg PO BEDTIME PRN sleep 07/15/24 07/15/24 Previous Rx's ?Medication ?Instructions ?Recorded allopurinol 100 mg tablet 200 mg (2 x 100 mg) PO DAILY uric 05/08/24 acid level #180 tabs metoprolol tartrate 25 mg tablet 25 mg PO BID #180 tab s 05/08/24 pravastatin 20 mg tablet 20 mg PO BEDTIME #90 tabs irbesartan 300 1 tab PO DAILY #90 tabs 05/01 08/21 mg-hydrochlorothiazide 12.5 mg tablet (Avalide) Allergies Allergy/AdvReac Type Severity Reaction Status Date / Time No Known Allergies Allergy Verified 02/17/24 12:45 COUNTS INCLUDE 234 BEDS AT THE [facility] ED 2 COUNTS INCLUDE 234 BEDS AT THE [facility]: Medical History (Updated 07/15/24 @ 13:48 by Julisa Earl MD) Hyperlipidemia Hx of bladder cancer Is on BCG History of tumor FATTY RUMOR REMOVED FROM LEFT LEG ABOVE KNEE Hypertension Lesion of bladder Gross hematuria Surgical History History of cystoscopy Family History Father , AT AGE 67 Accidentally struck by tree Mother , AT AGE 84 Sepsis Social History Smoking and tobacco/nicotine status: current every day tobacco/nicotine user Alcohol intake: never Substance/Drug Use: never Marital status: Current occupational status: retired Physical Exam 2 Const: COMMON NORMALS: no acute distress, healthy appearing and alert O RIENTATION/CONSCIOUSNESS: Yes oriented to person and Yes oriented to place; not oriented to time HENMT: COMMON NORMALS: normocephalic and atraumatic HEAD & SCALP: n ormocephalic and atraumatic Eye: COMMON NORMALS: Equal, round and reactive pupils present and EOMs intact bilaterally PUPIL: Yes Equal, round and reactive pupils present Neck/C-Spine: COMMON NORMALS: full ROM and supple Chest: COMMONS NORMALS: normal inspection of the chest Resp: COMMON NORMALS: normal respiratory effort, No retractions, No use of accessory muscles and clear to auscultation bilaterally AUSCULTATION: clear to auscultation bilaterally Cardio: COMMON NORMALS: regular rate, regular rhythm and No murmurs present (Cardio) RATE: regular rate RHYTHM: regular rhythm GI: COMMON NORMALS: Normal to inspection, nondistended, normoactive bowel sounds present, Soft to palpation, non-tender and no masses PALPATION: Yes Soft to palpation Extremity: COMMON NORMALS: normal to inspection and full ROM Neuro: COMMON NORMALS: moves all extremities and no focal motor deficits S ENSORIUM/ORIENTATION: Yes alert, Yes oriented to person, Yes oriented to place and No oriented to time SPEECH: speech normal GAIT: Yes Normal gait present MOTOR EXAM: 5/5 motor strength present throughout Psych: COMMON NORMALS: mental status grossly normal, Normal thought process present and cooperative THOUGHT PROCESS: Normal thought process present Skin: COMMON NORMALS: no rashes or lesions noted and no wounds GENERAL SKIN EXAM: no rashes or lesions noted Course 2 Vital Signs: Vital signs: Vital Signs Temperature 98.4 F 07/15/24 12:00 Pulse Rate 77 07/15/24 13:56 Respiratory Rate 16 07/15/24 12:00 Blood Pressure 131/62 07/15/24 13:56 Pulse Oximetry 93 07/15/24 13:56 Oxygen Delivery Me thod Room Air 07/15/24 12:00 MDM - General Adult Medical Decision Making Patient presents after syncopal event he has had these episodes in the past speak in his family high she has follow-up next month at [place] for these events he is back to his baseline no signs of a stroke blood work imaging here is all normal he stable for discharge follow-up as scheduled return if worsening. Medical Records I reviewed the patient's medical records. Lab Data I reviewed the patient's lab results. 07/15/24 13:04 07/15/24 13:04 Radiology Impressions Chest X-Ray 07/15/24 12:05 IMPRESSION: No acute pathology or significant interval change. Head CT 07/15/24 12:05 IMPRESSION: No acute pathology or significant interval change. Laboratory Results WBC 10.73 10^3/uL (3.29-11.43) 07/15/24 13:04 RBC 4.14 10^6/uL (3.85-5.65) 07/15/24 13:04 Hgb 13.10 g/dL (11.27-16.99) 07/15/24 13:04 Hct 39.8 % (37-53) 07/15/24 13:04 MCV 96.1 fl (82-101) 07/15/24 13:04 MCH 31.6 pg (27-33) 07/15/24 13:04 MCHC 32.9 g/dL (30-55) 07/15/24 13:04 RDW 14.2 % (12.1-15.1) 07/15/24 13:04 Plt Count 265 10^3/cmm (157-399) 07/15/24 13:04 MPV 10.5 fL (7.4-10.4) H 07/15/24 13:04 Neut % (Auto) 74.3 % 07/15/24 13:04 Lymph % (Auto) 19.0 % 07/15/24 13:04 [place] % (Auto) 4.8 % 07/15/24 13:04 Eos % (Auto) 1.1 % 07/15/24 13:04 Baso % (Auto) 0.4 % 07/15/24 13:04 Neut # (Auto) 7.98 10^3/uL (1.8-7.7) H 07/15/24 13:04 Lymph # (Auto) 2.0 10^3/uL (0.8-4.8) 07/15/24 13:04 [place] # (Auto) 0.5 10^3/uL (0.2-0.9) 07/15/24 13:04 Eos # (Auto) 0.1 10^3/uL (0.0-0.8) 07/15/24 13:04 Baso # (Auto) 0.0 10^3/uL (0.0-0.1) 07/15/24 13:04 Nucleated RBC % (auto) 0 % 07/15/24 13:04 Nucleated RBCs # 0.0 /100WBC 07/15/24 13:04 PT 12.50 SECONDS (12.1-14.9) 07/15/24 13:04 INR 0.87 (0.8-1.2) 07/15/24 13:04 Sodium 132 mmol/L (136-145) L 07/15/24 13:04 Potassium 4.4 mmol/L (3.5-5.1) 07/15/24 13:04 Chloride 95 mmol/L (98-107) L 07/15/24 13:04 Carbon Dioxide 24 mmol/L (22-29) 07/15/24 13:04 Anion Gap 17.4 (5-19) 07/15/24 13:04 BUN 26 mg/dL (8-23) H 07/15/24 13:04 Creatinine 1.5 mg/dL (0.7-1.2) H 07/15/24 13:04 GFR Calculation Not Reportable 07/15/24 13:04 Glucose 298 mg/dL (65-115) H 07/15/24 13:04 POC Glucose 268 mg/dL (70-110) H 07/15/24 13:09 Calculated Osmolality 290 mOsm/kg (285-295) 07/15/24 13:04 Calcium 9.6 mg/dL (8.5-10.5) 07/15/24 13:04 Total Bilirubin 0.3 mg/dL (0.15-1.2) 07/15/24 13:04 AST 18 U/L (0-40) 07/15/24 13:04 ALT 16 U/L (0-41) 07/15/24 13:04 Alkaline Phosphatase 103 U/L (40-130) 07/15/24 13:04 Total Protein 6.5 g/dL (6.6-8.7) L 07/15/24 13:04 Albumin 3.8 g/dL (3.5-5.2) 07/15/24 13:04 Globulin 2.7 g/dL (1.3-4.6) 07/15/24 13:04 Urine Color Yellow (Yellow) 07/15/24 13:12 Urine Appearance Clear (CLEAR) 07/15/24 13:12 Urine pH 6.0 (5-7) 07/15/24 13:12 Ur Specific [place] 1.013 (1.005-1.030) 07/15/24 13:12 Urine Protein 2+ (Negative) A 07/15/24 13:12 Urine Glucose (UA) Trace (Normal) H 07/15/24 13:12 Urine Ketones Negative (Negative) 07/15/24 13:12 Urine Blood Negative (Negative) 07/15/24 13:12 Urine Nitrate Negative (Negative) 07/15/24 13:12 Urine Bilirubin Negative (Negative) 07/15/24 13:12 Urine Urobilinogen 0.2 mg/dL (Negative) 07/15/24 13:12 Ur Leukocyte Esterase Negative (Negative) 07/15/24 13:12 Urine RBC 0-2 /hpf (0-2) 07/15/24 13:12 Urine WBC 0-5 /hpf (0-5) 07/15/24 13:12 Ur Squamous Epith Cells 0-5 /hpf (0-5) 07/15/24 13:12 Amorphous Sediment Not Reportable 07/15/24 13:12 Urine Bacteria None seen /hpf (NONE) 07/15/24 13:12 Hyaline Casts 4.11 /lpf 07/15/24 13:12 All radiology interpretation(s) finalized by discharge EKG Data EKG 1: I personally reviewed and interpreted this EKG as follows: EKG interpretation date: 07/15/24 EKG interpretation time: 12:24 Interpretation: nsr hr [address] elevation qrs 85 qtc 395 Computer generated interpretation: Chest X-Ray 07/15/24 12:05 IMPRESSION: No acute pathology or significant interval change. Head CT 07/15/24 12:05 IMPRESSION: No acute pathology or significant interval change. Discharge Plan Discharge Patient Disposition: Home Clinical Impression: Syncope Condition: Stable Prescriptions: No Action cholecalciferol (vitamin D3) 25 mcg (1,000 unit) capsule 25 mcg PO DAILY One-A-Day Men's Multivitamin 400-20-300 mcg tablet 1 tab PO DAILY metoprolol tartrate 25 mg tablet 25 mg PO BID Qty: 180 3RF pravastatin 20 mg tablet 20 mg PO BEDTIME Qty: 90 3RF allopurinol 100 mg tablet 200 mg PO DAILY Qty: 180 3RF irbesartan-hydrochlorothiazide [Avalide] 300-12.5 mg tablet 1 tab PO DAILY Qty: 90 3RF amlodipine 5 mg tablet 5 mg PO DAILY temazepam 7.5 mg capsule 7.5 mg PO BEDTIME PRN (Reason: sleep) Discharge Orders: Discharge ED (Routine); Ordered 07/15/24 Ordered By: Julisa Earl Referrals: Magnus Johnson, [Primary Care Provider] - 1-3 days Discharge Diet: Advance as tolerated Discharge Activity: Resume usual activity Patient Instructions: Syncope (ED) Print Language: Chinese Coding Level of Care Code ED Livestock Exhibitor for Pricilla Colbert NIH stroke score NIHSS Level Of Consciousness - 1a: 0 Level Of Consciousness Questions - 1b: Both Correct Level Of Consciousness Commands - 1c: Both Correct Best Gaze - 2: Normal Visual Blanca - 3: No Visual Loss Facial Palsy - 4: Normal Motor Arm Right - 5: No Drift Motor Arm Left - 5: No Drift Motor Leg Right - 6: No Drift Motor Leg Left - 6: No Drift Limb Ataxia - 7: Absent Sensory - 8: Normal Best Language - 9: No Aphasia Dysarthia - 10: Normal Extinction And Inattention - 11: 0 Score Total Score: 0
--- NOTE | 2024-07-15 12:24 | ECG_ITS ---
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[id number] Requested By: Julisa Earl Order Number: [id number] Reading MD: ETHAN GREEN Measurements Intervals [place] Rate: 86 P: 66 TN: 191 QRS: 31 QRSD: 85 T: 51 QT: 352 QTc: 421 Interpretive Statements SINUS RHYTHM WITH OCCASIONAL VENTRICULAR PREMATURE COMPLEXES JUNCTIONAL ST DEPRESSION, CONSIDER NORMAL VARIANT [0.1+ mV JUNCTIONAL DEPRESSION] Compared to ECG 09/05/2023 20:10:26 Ventricular premature complex(es) now present ST (T wave) deviation now present Sinus tachycardia no longer present Electronically Signed On 07-15-2024 19:14:53 HAND TOOL LAPPER by ETHAN GREEN [email or web address]
[2024-07-15 12:30] VITALS: BP 130/64; O2SAT 93
[2024-07-15 13:00] VITALS: O2SAT 95
[2024-07-15 13:12] LABS: Glucose Point of Care 268 mg/dL (70-110)
[2024-07-15 13:15] LABS: Basophils % 0.4 %; Eosinophils # 0.1 10^3/uL (0.0-0.8); Eosinophils % 1.1 %; Hematocrit 39.8 % (37-53); Mean Corpuscular HGB Conc 32.9 g/dL (30-55); Mean Corpuscular Hemoglobin 31.6 pg (27-33); Mean Corpuscular Volume 96.1 fl (82-101); Mean Platelet Volume 10.5 fL (7.4-10.4); Monocytes # 0.5 10^3/uL (0.2-0.9); Monocytes % 4.8 %; Neutrophils # 7.98 10^3/uL (1.8-7.7); Neutrophils % 74.3 %; Nucleated Red Blood Cells % 0 %; Platelet Count 265 10^3/cmm (157-399); Red Blood Count 4.14 10^6/uL (3.85-5.65); Red Cell Distribution Width 14.2 % (12.1-15.1); White Blood Count 10.73 10^3/uL (3.29-11.43)
[2024-07-15 13:20] LABS: Bilirubin Urine Negative (Negative); Blood Urine Negative (Negative); Glucose Urine UA Trace (Normal); Ketones Urine Negative (Negative); Leukocyte Esterase Urine Negative (Negative); Nitrate Urine Negative (Negative); Protein Urine 2+ (Negative); Specific Gravity, Urine 1.013 (1.005-1.030); Urine Appearance Clear (CLEAR); Urine Color Yellow (Yellow); Urobilinogen Urine 0.2 mg/dL (Negative)
[2024-07-15 13:22] LABS: Add Urine Microscopic? YES; Bacteria Urine None Seen /hpf; Hyaline Casts Urine 4.11 /lpf; RBC Urine 0-2 /hpf (0-2); Squamous Epithelial Cell Urine 0-5 /hpf (0-5); WBC Urine 0-5 /hpf (0-5)
[2024-07-15 13:28] LABS: INR 0.87 (0.8-1.2)
[2024-07-15 13:30] VITALS: BP 131/62; O2SAT 96
[2024-07-15 13:32] LABS: Alanine Aminotransferase 16 U/L (0-41); Albumin Level 3.8 g/dL (3.5-5.2); Alkaline Phosphatase 103 U/L (40-130); Anion Gap 17.4 (5-19); Aspartate Amino Transferase 18 U/L (0-40); Blood Urea Nitrogen 26 mg/dL (8-23); Calcium 9.6 mg/dL (8.5-10.5); Carbon Dioxide 24 mmol/L (22-29); Chloride 95 mmol/L (98-107); Creatinine Clr Calc Pharmacy 40.9438; Globulin 2.7 g/dL (1.3-4.6); Glucose 298 mg/dL (65-115); Osmolality Calculated 290 mOsm/kg (285-295); Potassium 4.4 mmol/L (3.5-5.1); Sodium 132 mmol/L (136-145); Total Bilirubin 0.3 mg/dL (0.15-1.2); Total Protein 6.5 g/dL (6.6-8.7)
[2024-07-15 13:56] VITALS: BP 131/62; PULSE 77; O2SAT 93
== END 2024-07-15 13:57 | disposition home or self-care (01) ==
PROVIDERS: Emergency Provider Emergency Medicine; PCP Family Medicine
DX: R55 Syncope and collapse (principal); Z72.0 Tobacco use; Z85.51 Personal history of malignant neoplasm of bladder; I10 Essential (primary) hypertension
CPT/HCPCS: 36415; 36416; 70450; 71045; 80053; 81001; 82962; 85025; 85610; 93005; 99285

== ENCOUNTER → 2024-08-03 09:53 | Outpatient (BNVA) | payer MEDICARE, BC, SELFPAY | PROVIDERS: PCP Family Medicine; Visit Provider Internal Medicine Cardiovascular Disease | DX: R55 Syncope and collapse (principal); I49.1 Atrial premature depolarization; I49.3 Ventricular premature depolarization | CPT/HCPCS: 93225 ==

== ENCOUNTER → 2024-08-22 13:12 | Outpatient (BNVA) | payer MEDICARE, BC, SELFPAY | PROVIDERS: PCP Family Medicine; Visit Provider Family Medicine | DX: E78.5 Hyperlipidemia, unspecified (principal); E11.9 Type 2 diabetes mellitus without complications; N28.9 Disorder of kidney and ureter, unspecified; J44.9 Chronic obstructive pulmonary disease, unspecified; M19.90 Unspecified osteoarthritis, unspecified site | CPT/HCPCS: 80053; 80061; 83036; 84550; 85025 ==

== ENCOUNTER → 2024-12-28 10:57 | Outpatient (BNVA) | payer MEDICARE, BC, SELFPAY | PROVIDERS: PCP Family Medicine; Visit Provider Family Medicine | DX: E11.9 Type 2 diabetes mellitus without complications (principal); N28.9 Disorder of kidney and ureter, unspecified; C67.9 Malignant neoplasm of bladder, unspecified; R56.9 Unspecified convulsions; E03.9 Hypothyroidism, unspecified | CPT/HCPCS: 80053; 80177; 82306; 82607; 83036; 84443; 84481; 85025 ==

== ENCOUNTER → 2025-05-01 15:46 | Outpatient (BNVA) | payer MEDICARE, BC, SELFPAY | PROVIDERS: PCP Family Medicine; Visit Provider Family Medicine | DX: C67.9 Malignant neoplasm of bladder, unspecified (principal); N32.9 Bladder disorder, unspecified; R31.0 Gross hematuria | CPT/HCPCS: 81003; 87086 ==